=== PATIENT | male | born 1935 | race Caucasian/White ===

== ENCOUNTER 2017-03-28 12:16 | Emergency (ER) | payer MEDICARE ==
[2017-03-28] MEDS ORDERED: Ondansetron 4 MG/2 ML SDV IVPUSH ONE (12:29)
[2017-03-28] MEDS ORDERED: methylPREDNISolone Sodium Succinate 125 MG/2 ML SDV IVPUSH ONE (12:29)
[2017-03-28] MEDS ORDERED: Sodium Chloride 0.9% 1,000 ML IV SCH (12:30)
--- NOTE | 2017-03-28 12:40 | EDM.PDOC ---
ED HPI GENERAL MEDICAL PROBLEM - General Chief Complaint: Cardiovascular Problem Stated Complaint: [facility] Time Seen by Provider: 03/28/17 12:19 Source of Information: Reports: Patient History Limitations: Reports: No Limitations - History of Present Illness INITIAL COMMENTS - FREE TEXT/NARRATIVE: 81-year-old male presents via [facility] for evaluation treatment of dizziness, nausea and vomiting. Patient reports that the dizziness started prior to arrival in the ER. CT is not doing anything particular, he was shopping with his . After the dizziness started, then he developed nausea and vomiting. He was given 4 mg Zofran en route by EMS. This is only given about 5 mins prior to arrival, no effect as of yet. He denies any headaches, chest pain, shortness of breath or syncope. Reports that the dizziness improves when he lays down and closes his eyes. Reports some abdominal discomforts which he attributes to the nausea. No pain. No recent cough or cold symptoms. Patient has a significant cardiac history including A. fib and " a rapid heartbeat ". He is previously had what sounds like an ablation. He is currently on eliquis. He is also diabetic. Patient's reports he do not have anything to eat today. Last blood sugar reports was in the 150s. Onset: Today, Sudden - Related Data Allergies Allergy/AdvReac Type Severity Reaction Status Date / Time No Known Allergies Allergy Verified 03/28/17 12:20 Home Meds: Home Meds Apixaban [Eliquis] 5 mg PO BID 03/28/17 [History] Carvedilol 6.25 mg PO BID 03/28/17 [History] Digoxin 125 mcg PO DAILY 03/28/17 [History] Furosemide [Lasix] 20 mg PO DAILY 03/28/17 [History] Lisinopril [Zestril] 10 mg PO DAILY 03/28/17 [History] Meclizine [Antivert] 25 mg PO Q6H PRN #15 tab.chew 03/28/17 [Rx] Ondansetron [Zofran ODT] 4 mg PO Q6H PRN #15 tab.dis 03/28/17 [Rx] Pioglitazone [Actos] 30 mg PO DAILY 03/28/17 [History] sitaGLIPtin Phos/Metformin HCl [Janumet 50-1,000 MG] 50 - 1,000 mg PO DAILY [History] Past Medical History HEENT History: Reports: Cataract, Glaucoma Cardiovascular History: Reports: Arrhythmia, Hypertension, Other (See Below) Other Cardiovascular History: A fib Gastrointestinal History: Reports: Other (See Below) Other Gastrointestinal History: unspecified hernia Endocrine/Metabolic History: Reports: Diabetes, Type II - Past Surgical History HEENT Surgical History: Reports: LASIK GI Surgical History: Reports: Appendectomy, Cholecystectomy Social & Family History - Tobacco Use Smoking Status *Q: Never Smoker Second Hand Smoke Exposure: No - Caffeine Use Caffeine Use: Reports: Coffee - Recreational Drug Use Recreational Drug Use: No ED ROS GENERAL - Review of Systems Review Of Systems: See Below Constitutional: Reports: Diaphoresis, Decreased Appetite. Denies: Fever HEENT: Denies: Ear Pain Respiratory: Denies: Shortness of Breath, Cough Cardiovascular: Denies: Chest Pain Endocrine: Denies: Low Glucose GI/Abdominal: Reports: Nausea, Vomiting. Denies: Abdominal Pain (discomfort from nausea) Neurological: Reports: Dizziness. Denies: Headache, Syncope ED EXAM, GENERAL - Physical Exam Exam: See Below Exam Limited By: No Limitations General Appearance: Alert, WD/WN, Mild Distress, Obese Eye Exam: Bilateral Eye: Nystagmus (at rest and with EOM testing; horizontal), PERRL Ears: Normal External Exam, Normal Canal, Hearing Grossly Normal, Normal TMs Ear Exam: Bilateral Ear: Auricle Normal, Canal Normal, TM normal Nose: Normal Inspection Throat/Mouth: Normal Inspection, Normal Lips, Normal Voice, No Airway Compromise Respiratory/Chest: No Respiratory Distress, Lungs Clear, Normal Breath Sounds Cardiovascular: Normal Peripheral Pulses, Regular Rate, Rhythm, No Murmur GI/Abdominal: Soft, Non-Tender Extremities: Normal Inspection Neurological: Alert, Oriented, CN II-XII Intact, Normal Cognition, Other (fire regulator 5 /5 bilaterally; dorsiflexion 5/5 bilaterally, plantarflexion 5/5 bilaterally; no pronator drift, normal heel to hunt testing, difficuly with accuracy on finger to nose testing; no facial droop, no slurred speech, no limb weakness) Psychiatric: Normal Affect, Normal Mood Skin Exam: Warm, Normal Color, Diaphoretic EKG INTERPRETATION EKG Date: 03/28/17 Time: 12:35 Rhythm: A-Fib Rate (Beats/Min): 74 Ragland: LAD-Left Ragland Deviation P-Wave: Absent QRS: RBBB ST-T: Normal QT: Normal EKG Interpretation Comments: A.fib with a rate of 74 bpm. RBBB, LAFB. Reviewed by myself and Dr. Hartman. Course - Vital Signs Last Recorded V/S: Last Vital Signs Temp 36.3 C 03/28/17 12:59 Pulse 80 03/28/17 12:59 Resp 20 03/28/17 12:59 BP 155/100 H 03/28/17 12:59 Pulse Ox 97 03/28/17 12:59 - Orders/Labs/Meds Orders: Active Orders 24 hr Category Date Time Status Blood Glucose Check, Bedside [RC] ONETIME Care 03/28/17 12:28 Active Cardiac Monitoring [RC] . DIRECTED Care 03/28/17 12:27 Active EKG Documentation Completion [RC] ASDIRECTED Care 03/28/17 12:28 Active Sodium Chloride 0.9% [Normal Saline] 1,000 ml Med 03/28/17 12:30 Active IV ASDIRECTED EKG 12 Lead [EK] Stat Ther 03/28/17 12:27 Ordered Medication Orders Sodium Chloride (Normal Saline) 1,000 mls @ 75 mls/hr IV ASDIRECTED TOÑA Last Admin: 03/28/17 12:47 Dose: 75 mls/hr Labs: Laboratory Tests 03/28/17 03/28/17 03/28/17 Range/Units 12:25 12:35 12:40 WBC (4.23-9.07) K/mm3 RBC (4.63-6.08) M/mm3 Hgb (13.7-17.5) gm/L Hct (40.1-51.0) % MCV (79.0-92.2) fl MCH (25.7-32.2) pg MCHC (32.2-35.5) g/dl RDW Std Deviation (35.1-43.9) fL Plt Count (163-337) K/mm3 MPV (9.4-12.3) fl Neutrophils % (Manual) (40-60) % Band Neutrophils % (0-10) % Lymphocytes % (Manual) (20-40) % Atypical Lymphs % % Monocytes % (Manual) (2-10) % Eosinophils % (Manual) (0.8-7.0) % Basophils % (Manual) (0.2-1.2) Platelet Estimate RBC Morph Comment PT (8.0-13.0) SECONDS INR APTT (22-36) SECONDS Sodium 143 (136-145) mEq/L Potassium 4.4 (3.5-5.1) mEq/L Chloride 108 H (98-107) mEq/L Carbon Dioxide 27 (21-32) mEq/L Anion Gap 12.4 (5-15) BUN 23 H (7-18) mg/dL Creatinine 1.3 (0.7-1.3) mg/dL Est Cr Clr Drug Dosing 46.79 mL/min Estimated GFR (MDRD) 53 (>60) mL/min BUN/Creatinine Ratio 17.7 (14-18) Glucose 171 H (83-115) mg/dL POC Glucose 147 H (83-110) mg/dL Calcium 8.8 (8.5-10.1) mg/dL Total Bilirubin 1.3 H (0.2-1.0) mg/dL AST 18 (15-37) U/L ALT 18 (16-63) U/L Alkaline Phosphatase 42 L (46-116) U/L Troponin I 0.018 (0.00-0.056) ng/mL Total Protein 6.7 (6.4-8.2) g/dl Albumin 3.4 (3.4-5.0) g/dl Globulin 3.3 gm/dL Albumin/Globulin Ratio 1.0 (1-2) Urine Color Yellow (Yellow) Urine Appearance Clear (Clear) Urine pH 7.0 (5.0-8.0) Ur Specific [place] > or = 1.030 (1.005-1.030) Urine Protein 2+ H (Negative) Urine Glucose (UA) Negative (Negative) Urine Ketones Negative (Negative) Urine Occult Blood Negative (Negative) Urine Nitrite Negative (Negative) Urine Bilirubin Negative (Negative) Urine Urobilinogen 0.2 (0.2-1.0) Ur Leukocyte Esterase Negative (Negative) Urine RBC 0-5 (0-5) /hpf Urine WBC 0-5 (0-5) /hpf Ur Epithelial Cells 0-5 (0-5) /hpf Urine Bacteria Few (FEW) /hpf Urine Mucus Few (FEW) /hpf 03/28/17 03/28/17 Range/Units 12:40 12:40 WBC 6.80 (4.23-9.07) K/mm3 RBC 4.36 L (4.63-6.08) M/mm3 Hgb 12.7 L (13.7-17.5) gm/L Hct 38.5 L (40.1-51.0) % MCV 88.3 (79.0-92.2) fl MCH 29.1 (25.7-32.2) pg MCHC 33.0 (32.2-35.5) g/dl RDW Std Deviation 49.9 H (35.1-43.9) fL Plt Count 209 (163-337) K/mm3 MPV 9.6 (9.4-12.3) fl Neutrophils % (Manual) 69 H (40-60) % Band Neutrophils % 0 (0-10) % Lymphocytes % (Manual) 28 (20-40) % Atypical Lymphs % 0 % Monocytes % (Manual) 3 (2-10) % Eosinophils % (Manual) 0 L (0.8-7.0) % Basophils % (Manual) 0 L (0.2-1.2) Platelet Estimate Adequate RBC Morph Comment Normal PT 12.5 (8.0-13.0) SECONDS INR 1.14 APTT 27 (22-36) SECONDS Sodium (136-145) mEq/L Potassium (3.5-5.1) mEq/L Chloride (98-107) mEq/L Carbon Dioxide (21-32) mEq/L Anion Gap (5-15) BUN (7-18) mg/dL Creatinine (0.7-1.3) mg/dL Est Cr Clr Drug Dosing mL/min Estimated GFR (MDRD) (>60) mL/min BUN/Creatinine Ratio (14-18) Glucose (83-115) mg/dL POC Glucose (83-110) mg/dL Calcium (8.5-10.1) mg/dL Total Bilirubin (0.2-1.0) mg/dL AST (15-37) U/L ALT (16-63) U/L Alkaline Phosphatase (46-116) U/L Troponin I (0.00-0.056) ng/mL Total Protein (6.4-8.2) g/dl Albumin (3.4-5.0) g/dl Globulin gm/dL Albumin/Globulin Ratio (1-2) Urine Color (Yellow) Urine Appearance (Clear) Urine pH (5.0-8.0) Ur Specific [place] (1.005-1.030) Urine Protein (Negative) Urine Glucose (UA) (Negative) Urine Ketones (Negative) Urine Occult Blood (Negative) Urine Nitrite (Negative) Urine Bilirubin (Negative) Urine Urobilinogen (0.2-1.0) Ur Leukocyte Esterase (Negative) Urine RBC (0-5) /hpf Urine WBC (0-5) /hpf Ur Epithelial Cells (0-5) /hpf Urine Bacteria (FEW) /hpf Urine Mucus (FEW) /hpf Meds: Medications Generic Name Dose Route Start Last Admin Trade Name Freq PRN Reason Stop Dose Admin Sodium Chloride 1,000 mls @ 75 mls/hr 03/28/17 12:30 03/28/17 12:47 Normal Saline IV 75 mls/hr ASDIRECTED TOÑA Administration Discontinued Medications Generic Name Dose Route Start Last Admin Trade Name Freq PRN Reason Stop Dose Admin Diazepam 2 mg 03/28/17 12:29 03/28/17 12:45 Valium IVPUSH 03/28/17 12:30 2 mg ONETIME ONE Administration Meclizine HCl 25 mg 03/28/17 13:49 03/28/17 14:01 Antivert PO 03/28/17 13:50 25 mg ONETIME ONE Administration Methylprednisolone Sodium Succinate 125 mg 03/28/17 12:29 03/28/17 12:40 Solu-Medrol IVPUSH 03/28/17 12:30 125 mg ONETIME ONE Administration Metoclopramide HCl 10 mg 03/28/17 13:49 03/28/17 13:57 Reglan IVPUSH 03/28/17 13:50 10 mg ONETIME ONE Administration Ondansetron HCl 4 mg 03/28/17 12:29 03/28/17 12:43 Zofran IVPUSH 03/28/17 12:30 4 mg ONETIME ONE Administration - Radiology Interpretation Free Text/Narrative:: Head CT without contrast impression per Dr. Nice: Senescent change as described. No acute intracranial abnormality is identified on noncontrast head CT study. chest [address] Nice: Heart is enlarged. Elevated right hemidiaphragm is seen. Lungs are clear without acute infiltrates. Bony stretchers appear within normal limits for the patient's age. CT Results Date: 03/28/17 - Re-Assessments/Exams Free Text/Narrative Re-Assessment/Exam: 03/28/17 13:50 I reviewed the head CT, EKG and lab results with the patient. He reports that his nausea and dizziness is a little bit better but is still present. It is more the nausea. Bothering him now. I will have him try some meclizine and some Reglan. He is asking for some food will get him a little bit of Jell-O. We'll continue to monitor him here in the ER. We'll see how he feels and see if he feels up to going home versus staying in the hospital. He lives in [facility]. 03/28/17 15:56 I rechecked the patient. He feels greatly improved at this time and feels ready to go home. The nausea and the dizziness has significantly improved. His finger- to-nose testing is now normal and his heel to hunt testing is still normal. I will have nursing staff get him up and walk around the ER and see how he does. Plan will be to discharge home with meclizine and Zofran as needed. Follow-up next week. 03/28/17 16:11 Patient able to get up and amulate around the ER without problem. Feels significantly improved and feels ready to go home. Discharge instructions as documented. Departure - Departure Time of Disposition: 16:11 Disposition: Home, Self-Care 01 Condition: Good Clinical Impression: BPPV (benign paroxysmal positional vertigo) Prescriptions: Meclizine [Antivert] 25 mg PO Q6H PRN #15 tab.chew PRN Reason: Dizziness Ondansetron [Zofran ODT] 4 mg PO Q6H PRN #15 tab.dis PRN Reason: Nausea Instructions: Vertigo, [id number] Referrals: Francisco Johnson PA-C [Primary Care Provider] - Forms: ED Department Discharge Additional Instructions: Meclizine 1 tab every 6 hours as needed for dizziness. Zofran 1 tab sublingual every 6 hours as needed for nausea. Rest today. Make sure you're drinking plenty of fluids. Follow up with Francisco next week for recheck of your symptoms. Please return to the ER if your symptoms change or worsen. - My Orders Last 24 Hours: My Active Orders 03/28/17 12:27 Cardiac Monitoring [RC] . DIRECTED EKG 12 Lead [EK] Stat 03/28/17 12:28 Blood Glucose Check, Bedside [RC] ONETIME EKG Documentation Completion [RC] ASDIRECTED 03/28/17 12:30 Sodium Chloride 0.9% [Normal Saline] 1,000 ml IV ASDIRECTED - Assessment/Plan Last 24 Hours: My Active Orders 03/28/17 12:27 Cardiac Monitoring [RC] . DIRECTED EKG 12 Lead [EK] Stat 03/28/17 12:28 Blood Glucose Check, Bedside [RC] ONETIME EKG Documentation Completion [RC] ASDIRECTED 03/28/17 12:30 Sodium Chloride 0.9% [Normal Saline] 1,000 ml IV ASDIRECTED
--- NOTE | 2017-03-28 13:12 | CT ---
Head CT Technique: Multiple axial sections were obtained through the brain. Intravenous contrast not utilized. Comparison: No previous intracranial imaging. Findings: Ventricles along with basal cisterns and sulci over convexities are mildly prominent. Mild diminished density is noted within the periventricular and subcortical white matter compatible with small vessel ischemic demyelination change. No other abnormal parenchymal densities are seen. No evidence of intracranial hemorrhage. No midline shift or mass effect is seen. Visualized sinuses are clear. No acute calvarial abnormality is seen. Impression: 1. Senescent change as described above. No acute intracranial abnormality is identified on noncontrast head CT study. Diagnostic code #2
[2017-03-28] MEDS ORDERED: Metoclopramide 10 MG/2 ML SDV IVPUSH ONE (13:49)
[2017-03-28] MEDS ORDERED: Meclizine 12.5 MG Tab PO ONE (13:49)
--- NOTE | 2017-03-28 14:44 | CR ---
Chest: Portable view of the chest was obtained. Comparison: Previous chest x-ray of 08/08/16. Heart is enlarged. Elevated right hemidiaphragm is seen. Lungs are clear without acute infiltrates. Bony structures appear within normal limits for the patient's age. Impression: 1. Findings as noted above which are stable from prior chest x-ray. 2. Nothing acute is appreciated on portable chest x-ray. Diagnostic code #2
== END 2017-03-28 16:30 | disposition home or self-care (01) ==
LOC: JD.ED 12:16 → SUPCPDRO 12:16 → JD.ED 16:30
DX: H81.10 Benign paroxysmal vertigo, unspecified ear (principal); I10 Essential (primary) hypertension; E11.9 Type 2 diabetes mellitus without complications; Z79.899 Other long term (current) drug therapy; I48.91 Unspecified atrial fibrillation
CPT/HCPCS: 36415; 70450; 71010; 80053; 81001; 82962; 84484; 85025; 85610; 85730; 93005; 96361; 96374; 96375; 99285; A9270; J2405; J2765; J2930; J3360; J7040; 93010

== ENCOUNTER 2018-07-31 16:53 | Inpatient (IN) | payer MEDICARE ==
--- NOTE | 2018-07-31 17:22 | EDM.PDOC ---
ED HPI GENERAL MEDICAL PROBLEM - General Chief Complaint: Cardiovascular Problem Stated Complaint: [facility] Time Seen by Provider: 07/31/18 17:15 Source of Information: Reports: Patient History Limitations: Reports: No Limitations - History of Present Illness INITIAL COMMENTS - FREE TEXT/NARRATIVE: 83-year-old male presents to the ED request of his personal care provider Erica Levy and [facility]. Patient has been traveling to [facility] and staying for a lengthy period of time to receive radiation treatments to his prostate cancer. This is what brain direct radiation. He has received radiation now for 4 weeks and has about 3 weeks left to go. Apparently when he was seen there he had an ECG which showed a fast rhythm in the 140s to 150s and was asymptomatic and they decided to leave him alone. Patient presented to the clinic today and was identified to be in atrial flutter//fib with a rate of 1 45 /m. Has no chest pain states she's not short of breath does not feel dizzy lightheaded and has no orthopnea or PND. However he is on digoxin he reports that he did stop his carvedilol and his Lasix . Discontinue his carvedilol may be the reason for his elevated heart rate. Apparently he is still taking the digoxin. ECG done at the clinic showed a wide-complex tachycardia at 1 45/m. No old ECGs were available for comparison purposes. Patient was therefore transported by ground ambulance to [facility] from [place]. His O2 sats are 99 200 % on room air. He goes no history of coronary disease. Onset: Unknown/Unsure Duration: Week(s): Location: Reports: Other (elevated heart rate) Quality: Reports: Other (He is in no pain or discomfort and denies being short of breath or dizzy.) Severity: Mild Improves with: Reports: None Worsens with: Reports: None Context: Reports: Other (Presents with a wide-complex tachycardia at 1 45/m which apparently has been present for several weeks). Denies: Activity, Exercise, Lifting, Sick Contact, Trauma Associated Symptoms: Denies: Shortness of Breath ( with no other symptoms.) Treatments DATA INTEGRATION DEVELOPER: Reports: IV/IO - Related Data Allergies Allergy/AdvReac Type Severity Reaction Status Date / Time No Known Allergies Allergy Verified 07/31/18 17:02 Home Meds: Home Meds Apixaban [Eliquis] 5 mg PO BID 03/28/17 [History] Carvedilol 12.5 mg PO BID 03/28/17 [History] Furosemide [Lasix] 20 mg PO DAILY 03/28/17 [History] Lisinopril [Zestril] 10 mg PO DAILY 03/28/17 [History] sitaGLIPtin Phos/Metformin HCl [Janumet 50-1,000 MG] 50 - 1,000 mg PO BID [History] Timolol Maleate 1 drop EYEBOTH BID 07/31/18 [History] Past Medical History HEENT History: Reports: Cataract, Glaucoma Cardiovascular History: Reports: Arrhythmia, Hypertension, Other (See Below) Other Cardiovascular History: A fib Gastrointestinal History: Reports: Other (See Below) Other Gastrointestinal History: unspecified hernia Genitourinary History: Reports: Other (See Below) (Patient was recently diagnosed with prostate cancer and drinks currently receiving the heart beam radiation treatments in [facility]. He has completed 4 weeks of treatment and has 3 weeks to go. Initially did have some gross hematuria but this has since cleared. He is bowels are working normally with no diarrhea) Endocrine/Metabolic History: Reports: Diabetes, Type II - Past Surgical History HEENT Surgical History: Reports: LASIK GI Surgical History: Reports: Appendectomy, Cholecystectomy Social & Family History - Tobacco Use Smoking Status *Q: Never Smoker - Caffeine Use Caffeine Use: Reports: Coffee - Recreational Drug Use Recreational Drug Use: No - Living Situation & Occupation Living situation: Reports: Occupation: Retired ED ROS GENERAL - Review of Systems Review Of Systems: See Below Constitutional: Denies: Fever, Chills, Malaise, Weakness, Fatigue, Weight Loss HEENT: Reports: Glasses Respiratory: Denies: Shortness of Breath, Wheezing, Pleuritic Chest Pain, Cough , Sputum, Hemoptysis Cardiovascular: Reports: Blood Pressure Problem, Edema (Mild in his lower extremities but). Denies: Chest Pain, Claudication, Dyspnea on Exertion ( worse since stopping the Lasix), Lightheadedness, Orthopnea (Has hypertension), Palpitations Endocrine: Reports: Other (Is a type II diabetic). Denies: Fatigue, High Glucose GI/Abdominal: Denies: Constipation, Diarrhea, Decreased Appetite, Difficulty Swallowing, Distension, Flatus, Hematemesis, Hematochezia, Melena, Mucous in Stool : Reports: Frequency, Other (Currently being treated for prostate cancer heart beam radiation in [place], [place].) Musculoskeletal: Reports: Back Pain Skin: Reports: No Symptoms Neurological: Reports: No Symptoms Psychiatric: Reports: No Symptoms Hematologic/Lymphatic: Reports: No Symptoms Immunologic: Reports: No Symptoms ED EXAM, GENERAL - Physical Exam Exam: See Below Exam Limited By: No Limitations General Appearance: Alert, WD/WN, No Apparent Distress, Other (Initial blood pressure is reported to be 150 11/07/17 however on recheck it was 152/92.) Eye Exam: Bilateral Eye: Normal Inspection Throat/Mouth: Normal Inspection, Normal Lips, Normal Oropharynx Head: Atraumatic, Normocephalic Neck: Normal Inspection, Supple, Non-Tender, Full Range of Motion, Other (Does have elevated jugular venous pulsations to 2 cm below his angle of his mandible) . No: Lymphadenopathy (L), Lymphadenopathy (R) Respiratory/Chest: Lungs Clear, Respiratory Distress (Used to At rest 24/m. O2 sats are well maintained at 98% on room air.), Decreased Breath Sounds (Breath sounds are minimally decreased in both bases and ). No: Rales, Rhonchi (no adventitial sounds are identified), Wheezing Cardiovascular: No Gallop ( Monitor shows wide-complex tachycardia), JVD (22 cm below the angle of his mandible), Tachycardia (Tachycardia at 145 minute.), Other (Trace edema at the feet). No: Normal Peripheral Pulses Peripheral Pulses: 1+: Posterior Tibial (L), Posterior Tibial (R), Dorsalis Pedis (L), Dorsalis Pedis (R), 2+: Carotid (L), Carotid (R) GI/Abdominal: Normal Bowel Sounds, Soft, Non-Tender, No Organomegaly, No Abnormal Bruit, No Mass, Pelvis Stable (Male) Exam: No Hernia Back Exam: Normal Inspection, Full Range of Motion. No: CVA Tenderness (L), CVA Tenderness (R) Extremities: Normal Inspection, Normal Range of Motion, Non-Tender, Pedal Edema Neurological: Alert, Oriented (Trace pedal edema at the ankles.), CN II-XII Intact, Normal Cognition Psychiatric: Normal Affect, Normal Mood Skin Exam: Warm, Dry, Intact, Normal Color, No Rash EKG INTERPRETATION EKG Date: 02/22/19 Time: 19:21 Rhythm: A-Flutter (With rate anywhere from 80-1 50/m.) Rate (Beats/Min): 123 [place]: LAD-Left [place] Deviation (-53. Left anterior fascicular block pattern.) P-Wave: Absent QRS: Other (Wide-complex's is appreciated B1 B2 and V4. 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 T-wave inversion in 1 and aVL V6 also appreciated in V2 and V3.) QT: Prolonged (QTC is mildly prolonged) Course - Vital Signs Last Recorded V/S: Last Vital Signs Temp 36.6 C 07/31/18 17:03 Pulse 143 H 07/31/18 17:03 Resp 24 H 07/31/18 17:03 BP 156/118 H 07/31/18 17:03 Pulse Ox 98 07/31/18 17:03 - Orders/Labs/Meds Orders: Active Orders 24 hr Category Date Time Status EKG Documentation Completion [RC] STAT Care 07/31/18 17:16 Active Chest 1V Frontal [CR] Stat Exams 07/31/18 17:16 Taken Amiodarone In Dextrose,Iso-Osm [Nexterone in Dextrose Med 07/31/18 17:30 Active 360 MG/200 ML] 360 mg in 200 ml IV ASDIRECTED Medication Orders Amiodarone HCl/Dextrose (Nexterone In Dextrose 360 Mg/200 Ml) 360 mg in 200 mls @ 33.333 mls/hr IV ASDIRECTED TOÑA; Protocol Last Admin: 07/31/18 17:37 Dose: 33.333 mls/hr Labs: Laboratory Tests 07/31/18 07/31/18 07/31/18 Range/Units 17:28 17:28 17:28 WBC 6.40 (4.23-9.07) K/mm3 RBC 4.78 (4.63-6.08) M/mm3 Hgb 13.5 L (13.7-17.5) gm/L Hct 41.6 (40.1-51.0) % MCV 87.0 (79.0-92.2) fl MCH 28.2 (25.7-32.2) pg MCHC 32.5 (32.2-35.5) g/dl RDW Std Deviation 47.8 H (35.1-43.9) fL Plt Count 143 L (163-337) K/mm3 MPV 10.1 (9.4-12.3) fl Neutrophils % (Manual) 76 H (40-60) % Band Neutrophils % 2 (0-10) % Lymphocytes % (Manual) 17 L (20-40) % Atypical Lymphs % 0 % Monocytes % (Manual) 5 (2-10) % Eosinophils % (Manual) 0 L (0.8-7.0) % Basophils % (Manual) 0 L (0.2-1.2) Platelet Estimate Adequate RBC Morph Comment Normal PT 15.2 H (9.5-12.1) SECONDS INR 1.40 APTT 34 H (24-31) SECONDS Sodium 141 (136-145) mEq/L Potassium 4.3 (3.5-5.1) mEq/L Chloride 107 (98-107) mEq/L Carbon Dioxide 23 (21-32) mEq/L Anion Gap 15.3 H (5-15) BUN 23 H (7-18) mg/dL Creatinine 1.2 (0.7-1.3) mg/dL Est Cr Clr Drug Dosing 50.55 mL/min Estimated GFR (MDRD) 58 (>60) mL/min BUN/Creatinine Ratio 19.2 H (14-18) Glucose 150 H (83-115) mg/dL Calcium 8.6 (8.5-10.1) mg/dL Magnesium 1.5 L (1.8-2.4) mg/dl Total Bilirubin 1.4 H (0.2-1.0) mg/dL AST 37 (15-37) U/L ALT 40 (16-63) U/L Alkaline Phosphatase 43 L (46-116) U/L CK-MB (CK-2) 2.8 (0-3.6) ng/ml Troponin I 0.049 (0.00-0.056) ng/mL C-Reactive Protein 0.4 (<1.0) mg/dL NT-Pro-B Natriuret Pep (0-450) pg/mL Total Protein 6.5 (6.4-8.2) g/dl Albumin 3.2 L (3.4-5.0) g/dl Globulin 3.3 gm/dL Albumin/Globulin Ratio 1.0 (1-2) Digoxin < 0.2 L (0.9-2.0) ng/mL 07/31/18 Range/Units 17:28 WBC (4.23-9.07) K/mm3 RBC (4.63-6.08) M/mm3 Hgb (13.7-17.5) gm/L Hct (40.1-51.0) % MCV (79.0-92.2) fl MCH (25.7-32.2) pg MCHC (32.2-35.5) g/dl RDW Std Deviation (35.1-43.9) fL Plt Count (163-337) K/mm3 MPV (9.4-12.3) fl Neutrophils % (Manual) (40-60) % Band Neutrophils % (0-10) % Lymphocytes % (Manual) (20-40) % Atypical Lymphs % % Monocytes % (Manual) (2-10) % Eosinophils % (Manual) (0.8-7.0) % Basophils % (Manual) (0.2-1.2) Platelet Estimate RBC Morph Comment PT (9.5-12.1) SECONDS INR APTT (24-31) SECONDS Sodium (136-145) mEq/L Potassium (3.5-5.1) mEq/L Chloride (98-107) mEq/L Carbon Dioxide (21-32) mEq/L Anion Gap (5-15) BUN (7-18) mg/dL Creatinine (0.7-1.3) mg/dL Est Cr Clr Drug Dosing mL/min Estimated GFR (MDRD) (>60) mL/min BUN/Creatinine Ratio (14-18) Glucose (83-115) mg/dL Calcium (8.5-10.1) mg/dL Magnesium (1.8-2.4) mg/dl Total Bilirubin (0.2-1.0) mg/dL AST (15-37) U/L ALT (16-63) U/L Alkaline Phosphatase (46-116) U/L CK-MB (CK-2) (0-3.6) ng/ml Troponin I (0.00-0.056) ng/mL C-Reactive Protein (<1.0) mg/dL NT-Pro-B Natriuret Pep 5730 H (0-450) pg/mL Total Protein (6.4-8.2) g/dl Albumin (3.4-5.0) g/dl Globulin gm/dL Albumin/Globulin Ratio (1-2) Digoxin (0.9-2.0) ng/mL Meds: Medications Generic Name Dose Route Start Last Admin Trade Name Freq PRN Reason Stop Dose Admin Amiodarone HCl/Dextrose 360 mg in 200 mls @ 33.333 mls/hr 07/31/18 17:30 17:37 Nexterone In Dextrose 360 Mg/200 Ml IV 33.333 mls/hr ASDIRECTED TOÑA Administration Protocol Discontinued Medications Generic Name Dose Route Start Last Admin Trade Name Freq PRN Reason Stop Dose Admin Amiodarone HCl/Dextrose 100 mls @ 600 mls/hr 07/31/18 17:18 07/31/18 17:25 Nexterone In Dextrose 150 Mg/100 Ml IV 07/31/18 17:27 600 mls/hr .BOLUS ONE Administration Protocol - Radiology Interpretation Free Text/Narrative:: 83-year-old male presents the ED due to persistent tachycardia for at least 2 weeks or probably longer. Care provider was able to establish that he was identified to be having a panic tachycardia over 2 weeks ago when he was seen by the wind operations manager in [facility]. She had no ECGs for comparison purposes. The ECG section she said me suggested a wide-complex tachycardia. My ECG does suggest a wide-complex tachycardia due to left anterior fascicular block and likely right bundle branch block pattern. The rate is atrophic/atrial flutter. She is no longer on the carvedilol will treat him with amiodarone starting with the 150 mg over 10 minutes and then starting him on a drip of 60 mg an hour. Labs to be done to include serum digoxin level BNP. One view chest x-ray to be done - Re-Assessments/Exams Free Text/Narrative Re-Assessment/Exam: 07/31/18 17:46 Portable chest x-ray reveals moderate cardiomegaly with mild diffuse vascular congestion. No pleural effusions are evident. Slight tortuosity of the thoracic aorta appreciated his rate is already dropped to 71/ m after the initial amiodarone 150 mg over 10 minutes. Sats are maintained at 96 % on room air 07/31/18 18:47 Labs reveal a normal white count at 6.40 with 76% neutrophils and 2% band cells reported. Hemoglobin is 13.5 with hematocrit of 41.6. Platelet counts 143,000. PT is 15.2 with an INR 1.40. PTT is 34. Sodium 141 with potassium of 4.3. Chloride is 107 with bicarbonate 23. And a gap is 15.3 with a BUN of 23. Creatinine 1.2. BUN/creatinine ratio is slightly elevated at 19.2. Glucose 150. Calcium was 8.6 with magnesium slightly low at 1.5. Total bilirubin is 1.4 AST is 37 with an ALT of 40. Alk phosphatase is low at 43. CK- MB fraction is 2.8. Troponin I is normal at 0.049. C-reactive protein is 0.4. BNP is 5730. Total bilirubin is 6.5. Digoxin is less than 0.2 suggesting he is not taking it either. His discussed with Dr. Nino who is telephone instrument supervisor for hospitalist at this time. He will accept the patient in care to the intensive care unit as he is on amiodarone infusion.. 07/31/18 19:13 continues to complain of a pinching sensation in his right supraclavicular fossa area. Us the third time he has been complaining about it. Will give him 0.25 mg of Dilaudid for pain relief at this time. He will be given Lasix 40 mg IV. His BNP is 5730. Departure - Departure Time of Disposition: 18:48 Disposition: Admitted As Inpatient 67 Condition: Fair Clinical Impression: Chronic atrial fibrillation with RVR Hypertensive heart disease Qualifiers: Heart failure presence: with heart failure Heart failure type: combined systolic and diastolic Heart failure chronicity: acute on chronic Qualified Code (s): I11.0 - Hypertensive heart disease with heart failure; I50.43 - Acute on chronic combined systolic (congestive) and diastolic (congestive) heart failure Congestive heart failure Qualifiers: Heart failure type: unspecified Heart failure chronicity: acute on chronic Qualified Code(s): I50.9 - Heart failure, unspecified Forms: ED Department Discharge - My Orders Last 24 Hours: My Active Orders 07/31/18 17:16 EKG Documentation Completion [RC] STAT Chest 1V Frontal [CR] Stat 07/31/18 17:30 Amiodarone In Dextrose,Iso-Osm [Nexterone in Dextrose 360 MG/200 ML] 360 mg in 200 ml IV ASDIRECTED - Assessment/Plan Last 24 Hours: My Active Orders 07/31/18 17:16 EKG Documentation Completion [RC] STAT Chest 1V Frontal [CR] Stat 07/31/18 17:30 Amiodarone In Dextrose,Iso-Osm [Nexterone in Dextrose 360 MG/200 ML] 360 mg in 200 ml IV ASDIRECTED
[2018-07-31] MEDS ORDERED: Furosemide 40 MG/4 ML VIAL IVPUSH ONE (19:01)
[2018-07-31] MEDS ORDERED: HYDROmorphone 1 MG/ML Syringe IVPUSH ONE (19:02)
[2018-07-31] MEDS ORDERED: LORazepam 2 MG/ML SDV IV PRN (19:21)
[2018-07-31] MEDS ORDERED: Docusate Sodium 100 MG Cap PO PRN (19:21)
[2018-07-31] MEDS ORDERED: Albuterol/Ipratropium 3.0-0.5 MG/3 ML Neb Soln NEB PRN (19:21)
[2018-07-31] MEDS ORDERED: HYDROmorphone 1 MG/ML Syringe IVPUSH PRN (19:21)
[2018-07-31] MEDS ORDERED: Metoprolol Tartrate 5 MG/5 ML SDV IVPUSH PRN (19:21)
[2018-07-31] MEDS ORDERED: hydrALAZINE 20 MG/ML SDV IVPUSH PRN (19:21)
[2018-07-31] MEDS ORDERED: Ondansetron 4 MG/2 ML SDV IV PRN (19:21)
[2018-07-31] MEDS ORDERED: Bisacodyl 5 MG Tab PO PRN (19:21)
[2018-07-31] MEDS ORDERED: Promethazine 6.25 MG in Sodium Chloride 0.9% 50 ML IV PRN (19:21)
[2018-07-31] MEDS ORDERED: Acetaminophen 325 MG Tab PO PRN (19:21)
--- NOTE | 2018-07-31 19:37 | PCM.HP ---
H&P History of Present Illness - General Date of Service: 07/31/18 Source of Information: Patient, Provider History Limitations: Reports: No Limitations - History of Present Illness Initial Comments - Free Text/Narative: This is an 83 yo male with past medical h/o Afib on Eliquis, HTN, CHF, DM2, Appendectomy, Cholecystectomy, Cataract, Glaucoma, Prostate CA who was sent to the ED from his PCP in [place] for Afib w/ RVR. Pt was at clinic today and was identified to be in atrial flutter/Afib with wide-complex tachycardia at 145bpm. While getting radiation treatment for Prostate CA in [place] over the past 4 weeks, he had EKG w/ HR 140s-150s but was asymptomatic so no treatment was given. He is on Digoxin, but stopped his Carvedilol and Lasix (he is unsure as to why these were stopped). Pt c/o pinching sensation in his right supraclavicular fossa area. He denies any dizziness/lightheadedness, CP, SOB, N/ V/D, or other complaints. His initial workup in the ED shows a CBC remarkable for Hgb 13.5, RDW 47.8, Plt 143, Neut 76%, Lymph 17%. Coagulation studies show PT 15.2, INR 1.4, APTT 34. His chemistry is remarkable for AGap 15.3, BUN 23, GFR 58, Glu 150, Mg 1.5, Bili 1.4, Alk Phos 43, BNP 5730, Albumin 3.2. Digoxin <0.2. EKG per ED read suggests wide-complex tachycardia d/t L anterior fascicular block and likely RBBB, mildly prolonged QT interval. UA not impressive for UTI. CXR per ED read shows mod cardiomegaly w/ mild diffuse vascular congestion; pending formal read. He is subsequently admitted to the ICU. He is a Full Code. PCP is Erica Levy PA-C at [facility]. - Related Data Allergies/Adverse Reactions: Allergies Allergy/AdvReac Type Severity Reaction Status Date / Time No Known Allergies Allergy Verified 07/31/18 17:02 Home Medications: Home Meds Apixaban [Eliquis] 5 mg PO BID 03/28/17 [History] Carvedilol 12.5 mg PO BID 03/28/17 [History] Furosemide [Lasix] 20 mg PO DAILY 03/28/17 [History] Lisinopril [Zestril] 10 mg PO DAILY 03/28/17 [History] sitaGLIPtin Phos/Metformin HCl [Janumet 50-1,000 MG] 50 - 1,000 mg PO BID [History] Timolol Maleate 1 drop EYEBOTH BID 07/31/18 [History] Past Medical History HEENT History: Reports: Cataract, Glaucoma Cardiovascular History: Reports: Arrhythmia, Hypertension, Other (See Below) Other Cardiovascular History: A fib Gastrointestinal History: Reports: Other (See Below) Other Gastrointestinal History: unspecified hernia Genitourinary History: Reports: Other (See Below) (Patient was recently diagnosed with prostate cancer and drinks currently receiving the heart beam radiation treatments in [facility]. He has completed 4 weeks of treatment and has 3 weeks to go. Initially did have some gross hematuria but this has since cleared. He is bowels are working normally with no diarrhea) Endocrine/Metabolic History: Reports: Diabetes, Type II - Past Surgical History HEENT Surgical History: Reports: LASIK GI Surgical History: Reports: Appendectomy, Cholecystectomy Social & Family History - Tobacco Use Smoking Status *Q: Never Smoker - Caffeine Use Caffeine Use: Reports: Coffee - Recreational Drug Use Recreational Drug Use: No - Living Situation & Occupation Living situation: Reports: Occupation: Retired H&P Review of Systems - Review of Systems: Review Of Systems: See Below General: Reports: No Symptoms. Denies: Fever, Chills, Malaise, Weakness, Fatigue HEENT: Reports: Glasses. Denies: Headaches, Visual Changes Pulmonary: Reports: No Symptoms. Denies: Shortness of Breath, Wheezing, Cough Cardiovascular: Reports: Edema, Blood Pressure Problem. Denies: Chest Pain, Palpitations, Dyspnea on Exertion, Orthopnea, Lightheadedness Gastrointestinal: Reports: No Symptoms. Denies: Abdominal Pain, Diarrhea, Nausea, Vomiting Genitourinary: Reports: Frequency, Other (currently being treated for Prostate CA) Musculoskeletal: Reports: Back Pain Skin: Reports: No Symptoms Psychiatric: Reports: No Symptoms Neurological: Reports: No Symptoms Hematologic/Lymphatic: Reports: No Symptoms Immunologic: Reports: No Symptoms Exam - Exam Exam: See Below - Vital Signs Vital Signs: Last Vital Signs Temp 97.8 F 07/31/18 17:03 Pulse 143 H 02/22/19 17:03 Resp 24 H 07/31/18 17:03 BP 156/118 H 07/31/18 17:03 Pulse Ox 98 07/31/18 17:03 Weight: 220 lb - Exam Quality Assessment: DVT Prophylaxis General: Alert, Oriented, Cooperative HEENT: Conjunctiva Clear, EACs Clear, EOMI, Hearing Intact, Mucosa Moist & [place] , Nares Patent, Normal Nasal Septum, Posterior Pharynx Clear, Glasses, PERRLA Neck: Supple, Trachea Midline, JVD Lungs: Clear to Auscultation, Decreased Breath Sounds Cardiovascular: Irregular Rhythm, Tachycardia. No: Regular Rate (irregular) GI/Abdominal Exam: Normal Bowel Sounds, Soft, Non-Tender, No Organomegaly, No Distention, No Abnormal Bruit, No Mass, Pelvis Stable (Male) Exam: Deferred Rectal (Males) Exam: Deferred Back Exam: Normal Inspection Extremities: Normal Inspection, Normal Range of Motion, Non-Tender, Normal Capillary Refill, Pedal Edema (1+ bilaterally) Peripheral Pulses: 1+: Posterior Tibial (L), Posterior Tibial (R), Dorsalis Pedis (L), Dorsalis Pedis (R) Skin: Warm, Dry, Intact Neurological: Cranial Nerves Intact (grossly) Neuro Extensive - Mental Status: Alert, Oriented x3, Normal Mood/Affect, Normal Cognition Psychiatric: Alert, Normal Affect, Normal Mood - Patient Data Lab Results Last 24 hrs: Laboratory Results - last 24 hr 07/31/18 07/31/18 07/31/18 Range/Units 17:28 17:28 17:28 WBC 6.40 (4.23-9.07) K/mm3 RBC 4.78 (4.63-6.08) M/mm3 Hgb 13.5 L (13.7-17.5) gm/L Hct 41.6 (40.1-51.0) % MCV 87.0 (79.0-92.2) fl MCH 28.2 (25.7-32.2) pg MCHC 32.5 (32.2-35.5) g/dl RDW Std Deviation 47.8 H (35.1-43.9) fL Plt Count 143 L (163-337) K/mm3 MPV 10.1 (9.4-12.3) fl Neutrophils % (Manual) 76 H (40-60) % Band Neutrophils % 2 (0-10) % Lymphocytes % (Manual) 17 L (20-40) % Atypical Lymphs % 0 % Monocytes % (Manual) 5 (2-10) % Eosinophils % (Manual) 0 L (0.8-7.0) % Basophils % (Manual) 0 L (0.2-1.2) Platelet Estimate Adequate RBC Morph Comment Normal PT 15.2 H (9.5-12.1) SECONDS INR 1.40 APTT 34 H (24-31) SECONDS Sodium 141 (136-145) mEq/L Potassium 4.3 (3.5-5.1) mEq/L Chloride 107 (98-107) mEq/L Carbon Dioxide 23 (21-32) mEq/L Anion Gap 15.3 H (5-15) BUN 23 H (7-18) mg/dL Creatinine 1.2 (0.7-1.3) mg/dL Est Cr Clr Drug Dosing 50.55 mL/min Estimated GFR (MDRD) 58 (>60) mL/min BUN/Creatinine Ratio 19.2 H (14-18) Glucose 150 H (83-115) mg/dL Calcium 8.6 (8.5-10.1) mg/dL Magnesium 1.5 L (1.8-2.4) mg/dl Total Bilirubin 1.4 H (0.2-1.0) mg/dL AST 37 (15-37) U/L ALT 40 (16-63) U/L Alkaline Phosphatase 43 L (46-116) U/L CK-MB (CK-2) 2.8 (0-3.6) ng/ml Troponin I 0.049 (0.00-0.056) ng/mL C-Reactive Protein 0.4 (<1.0) mg/dL NT-Pro-B Natriuret Pep (0-450) pg/mL Total Protein 6.5 (6.4-8.2) g/dl Albumin 3.2 L (3.4-5.0) g/dl Globulin 3.3 gm/dL Albumin/Globulin Ratio 1.0 (1-2) Urine Color (Yellow) Urine Appearance (Clear) Urine pH (5.0-8.0) Ur Specific [place] (1.005-1.030) Urine Protein (Negative) Urine Glucose (UA) (Negative) Urine Ketones (Negative) Urine Occult Blood (Negative) Urine Nitrite (Negative) Urine Bilirubin (Negative) Urine Urobilinogen (0.2-1.0) Ur Leukocyte Esterase (Negative) Urine RBC (0-5) /hpf Urine WBC (0-5) /hpf Ur Epithelial Cells (0-5) /hpf Urine Bacteria (FEW) /hpf Hyaline Casts (0-5) /lpf Urine Mucus (FEW) /hpf Digoxin < 0.2 L (0.9-2.0) ng/mL 07/31/18 07/31/18 Range/Units 17:28 18:49 WBC (4.23-9.07) K/mm3 RBC (4.63-6.08) M/mm3 Hgb (13.7-17.5) gm/L Hct (40.1-51.0) % MCV (79.0-92.2) fl MCH (25.7-32.2) pg MCHC (32.2-35.5) g/dl RDW Std Deviation (35.1-43.9) fL Plt Count (163-337) K/mm3 MPV (9.4-12.3) fl Neutrophils % (Manual) (40-60) % Band Neutrophils % (0-10) % Lymphocytes % (Manual) (20-40) % Atypical Lymphs % % Monocytes % (Manual) (2-10) % Eosinophils % (Manual) (0.8-7.0) % Basophils % (Manual) (0.2-1.2) Platelet Estimate RBC Morph Comment PT (9.5-12.1) SECONDS INR APTT (24-31) SECONDS Sodium (136-145) mEq/L Potassium (3.5-5.1) mEq/L Chloride (98-107) mEq/L Carbon Dioxide (21-32) mEq/L Anion Gap (5-15) BUN (7-18) mg/dL Creatinine (0.7-1.3) mg/dL Est Cr Clr Drug Dosing mL/min Estimated GFR (MDRD) (>60) mL/min BUN/Creatinine Ratio (14-18) Glucose (83-115) mg/dL Calcium (8.5-10.1) mg/dL Magnesium (1.8-2.4) mg/dl Total Bilirubin (0.2-1.0) mg/dL AST (15-37) U/L ALT (16-63) U/L Alkaline Phosphatase (46-116) U/L CK-MB (CK-2) (0-3.6) ng/ml Troponin I (0.00-0.056) ng/mL C-Reactive Protein (<1.0) mg/dL NT-Pro-B Natriuret Pep 5730 H (0-450) pg/mL Total Protein (6.4-8.2) g/dl Albumin (3.4-5.0) g/dl Globulin gm/dL Albumin/Globulin Ratio (1-2) Urine Color Yellow (Yellow) Urine Appearance Clear (Clear) Urine pH 6.0 (5.0-8.0) Ur Specific [place] > or = 1.030 (1.005-1.030) Urine Protein 3+ H (Negative) Urine Glucose (UA) Negative (Negative) Urine Ketones Negative (Negative) Urine Occult Blood 1+ H (Negative) Urine Nitrite Negative (Negative) Urine Bilirubin Negative (Negative) Urine Urobilinogen 0.2 (0.2-1.0) Ur Leukocyte Esterase Trace H (Negative) Urine RBC 10-20 H (0-5) /hpf Urine WBC 10-20 H (0-5) /hpf Ur Epithelial Cells 0-5 (0-5) /hpf Urine Bacteria Few (FEW) /hpf Hyaline Casts 5-10 H (0-5) /lpf Urine Mucus Moderate H (FEW) /hpf Digoxin (0.9-2.0) ng/mL Result Diagrams: 07/31/18 17:28 07/31/18 17:28 - Problem List (1) Chronic atrial fibrillation with RVR SNOMED Code(s): 588662037, [id number] ICD Code: I48.2 - CHRONIC ATRIAL FIBRILLATION Status: Acute Priority: High Current Visit: Yes (2) Congestive heart failure SNOMED Code(s): 00000316 ICD Code: I50.9 - HEART FAILURE, UNSPECIFIED Status: Acute Priority: High Current Visit: Yes Qualifiers: Heart failure type: unspecified Heart failure chronicity: acute on chronic Qualified Code(s): I50.9 - Heart failure, unspecified Problem List Initiated/Reviewed/Updated: Yes Orders Last 24hrs: Active Orders 24 hr Category Date Time Status Cardiac Monitoring [RC] CONTINUOUS Care 07/31/18 19:22 Ordered EKG Documentation Completion [RC] ROUTINE Care 07/31/18 19:00 Active EKG Documentation Completion [RC] STAT Care 07/31/18 17:16 Active Height and Weight [RC] DAILY Care 07/31/18 19:21 Active Intake and Output [RC] QSHIFT Care 07/31/18 19:22 Ordered Oxygen Therapy [RC] PRN Care 07/31/18 19:21 Ordered Pulse Oximetry [RC] PRN Care 07/31/18 19:22 Ordered RT Aerosol Therapy [RC] ASDIRECTED Care 07/31/18 19:23 Ordered Up With Assistance [RC] ASDIRECTED Care 07/31/18 19:21 Ordered Up ad [place] [RC] ASDIRECTED Care 07/31/18 19:21 Ordered VTE/DVT Education [RC] PER UNIT ROUTINE Care 07/31/18 19:21 Ordered Vital Signs [RC] Q4H Care 07/31/18 19:21 Active Consistent Carbohydrate Diet [DIET] Diet 07/31/18 Dinner Active Heart Healthy Diet [DIET] Diet 07/31/18 Dinner Active Chest 1V Frontal [CR] Stat Exams 07/31/18 17:16 Taken BASIC METABOLIC PANEL,BMP [CHEM] AM Lab 08/01/18 05:11 Ordered BASIC METABOLIC PANEL,BMP [CHEM] AM Lab 08/02/18 05:11 Ordered BASIC METABOLIC PANEL,BMP [CHEM] AM Lab 08/03/18 05:11 Ordered CBC WITH AUTO DIFF [HEME] AM Lab 08/01/18 05:11 Ordered CBC WITH AUTO DIFF [HEME] AM Lab 08/02/18 05:11 Ordered CBC WITH AUTO DIFF [HEME] AM Lab 08/03/18 05:11 Ordered MAGNESIUM [CHEM] AM Lab 08/01/18 05:11 Ordered MAGNESIUM [CHEM] AM Lab 08/02/18 05:11 Ordered MAGNESIUM [CHEM] AM Lab 08/03/18 05:11 Ordered Acetaminophen [Tylenol] Med 07/31/18 19:21 Ordered 650 mg PO Q4H PRN Acetaminophen/HYDROcodone [[place] 325-5 MG] Med 07/31/18 19:21 Ordered 1 tab PO Q4H PRN Albuterol/Ipratropium [DuoNeb 3.0-0.5 MG/3 ML] Med 07/31/18 19:21 Ordered 3 ml NEB Q4H PRN Amiodarone In Dextrose,Iso-Osm [Nexterone in Dextrose Med 07/31/18 17:30 Active 360 MG/200 ML] 360 mg in 200 ml IV ASDIRECTED Apixaban [Eliquis] Med 07/31/18 21:00 Ordered 5 mg PO BID Bisacodyl [Dulcolax] Med 07/31/18 19:21 Ordered 5 mg PO DAILY PRN Carvedilol [Coreg] Med 07/31/18 21:00 Ordered 12.5 mg PO BID Docusate Sodium [Colace] Med 07/31/18 19:21 Ordered 100 mg PO BID PRN Docusate Sodium/Sennosides [Senna Plus] Med 07/31/18 19:21 Ordered 1 tab PO BID PRN Furosemide [Lasix] Med 08/01/18 09:00 Ordered 20 mg PO DAILY HYDROmorphone [Dilaudid] Med 07/31/18 19:21 Ordered 0.25 mg IVPUSH Q2H PRN LORazepam [Ativan] Med 07/31/18 19:21 Ordered 0.25 mg IV Q6H PRN Lisinopril [Prinivil] Med 08/01/18 09:00 Ordered 10 mg PO DAILY Metoprolol Tartrate [Lopressor] Med 07/31/18 19:21 Ordered 5 mg IVPUSH Q4H PRN Ondansetron [Zofran] Med 07/31/18 19:21 Ordered 4 mg IV Q6H PRN Pharmacy to Dose - Magnesium R [Pharmacy to Dose - Med 07/31/18 19:30 Ordered Magnesium Replacement] 1 dose .XX ASDIRECTED Pharmacy to Dose - Potassium R [Pharmacy to Dose - Med 07/31/18 19:30 Ordered Potassium Replacement] 1 dose .XX ASDIRECTED Promethazine [Phenergan] 6.25 mg Med 07/31/18 19:21 Ordered Sodium Chloride 0.9% [Normal Saline] 50 ml IV Q6H Timolol Maleate [Timoptic 0.25% Ophth Soln] Med 07/31/18 21:00 Ordered 1 drop EYEBOTH BID hydrALAZINE [Apresoline] Med 07/31/18 19:21 Ordered 20 mg IVPUSH Q4H PRN sitaGLIPtin Phos/Metformin HCl [Janumet 50-1,000 MG] Med 07/31/18 21:00 Ordered 50 - 1,000 mg PO BID Medication Orders Amiodarone HCl/Dextrose (Nexterone In Dextrose 360 Mg/200 Ml) 360 mg in 200 mls @ 33.333 mls/hr IV ASDIRECTED TOÑA; Protocol Last Admin: 07/31/18 17:37 Dose: 33.333 mls/hr Assessment/Plan Comment:: Assessment/Plan: AFib w/ RVR * Acute on Chronic * Risk factor: Stopped taking Carvedilol--> Restart Carvedilol * Pt denies dizziness, CP, SOB * Persistent tachycardia x 2+ weeks: * During radiation treatment in [place] over the past 4 weeks, had EKG w/ HR 140s- 150s but was asymptomatic so no treatment was given * Pt was at clinic today and identified to be in Aflutter/Afib with wide- complex tachycardia at 145bpm; was sent to ED * He is on Digoxin * EKG in ED suggests wide-complex tachycardia d/t L anterior fascicular block and likely RBBB; mildly prolonged QT interval * CXR per ED read: Mod cardiomegaly w/ mild diffuse vascular congestion; pending formal read * Amiodarone started in ED--> continue * Thyroid panel pending * F/U with cardiology CHF * Acute on Chronic * Risk Factors: Afib, HTN, stopped his Lasix and Carvedilol--> Restart Carvedilol * BNP 5730, Pedal edema * ECHO pending; no prior studies to compare to * Lasix given in ED * Bumex BID Chronic: Afib on Eliquis, Digoxin, previously on Carvedilol HTN on Lisinopril CHF previously on Carvedilol, Lasix DM2 on Metformin * A1C pending * QID Glucose checks, ISS Appendectomy Cholecystectomy Cataract, Glaucoma Prostate CA --> radiation treatment in [place], [place] (4 weeks completed, 3 weeks to go) Plan: Admit to ICU Routine AM Labs Orders as above Consistent Carb/Heart Healthy Diet DVT/GI prophylaxis CM/SW PT/OT Code Status: Full Code; PCP: Erica Levy PA-C at [facility]
[2018-07-31] MEDS ORDERED: Magnesium Oxide 400 MG Tab PO ONE (20:00)
--- NOTE | 2018-07-31 20:47 | PCM.SN ---
- Free Text/Narrative Note: Patient seems to have converted to sinus rhythm with a heart rate of 67. He has been ambulating with heart rates in the 80s. He received a total of est 300 mg IV Amiodarone (150 mg bolus and 1/5 of 350 drip). Hence, we will start him on oral regimen with 300 mg po x1 tonight at 2100. Then 300 mg po BID (or 600 mg po daily) starting in AM in loading phase for at least 1-3 weeks until adequate arrhythmia control is achieved then reduce to maintenance at 400 mg po daily or 200 mg po BID. He will have 2D echo in AM and he needs cardiology follow up after discharge.
[2018-07-31] MEDS: Alogliptin 12.5 MG TABLET PO SCH (20:52)
[2018-07-31] MEDS: Carvedilol 12.5 MG Tab PO SCH (20:54)
[2018-07-31] MEDS: Apixaban 5 MG Tab PO SCH (20:55)
[2018-07-31] MEDS: metFORMIN 500 MG Tab PO SCH (20:58)
[2018-07-31] MEDS ORDERED: [UNRECOGNIZED DRUG - OTHER] PO SCH (21:00)
[2018-07-31] MEDS ORDERED: Amiodarone 200 MG Tab PO ONE (21:00)
[2018-07-31] MEDS ORDERED: SITAGLIPTIN PHOS PO SCH (21:00)
[2018-07-31] MEDS ORDERED: METFORMIN HCL PO SCH (21:00)
[2018-07-31] MEDS: Timolol Maleate 0.25% Ophth Soln 5 ML Bottle EYEBOTH SCH (21:06)
[2018-07-31] MEDS: Insulin Lispro 100 UNIT/ML 10 ML VIAL SUBCUT SCH (22:17)
[2018-08-01] MEDS: Acetaminophen/HYDROcodone 325-5 MG Tab PO PRN ×3 (01:01→20:19)
[2018-08-01] MEDS: Bumetanide 1 MG/4 ML MDV IVPUSH SCH ×2 (06:10→14:03)
--- NOTE | 2018-08-01 07:15 | PCM.PN ---
- General Info Date of Service: 08/01/18 Admission Dx/Problem (Free Text): Afib with RVR Subjective Update: Follow Up Functional Status: Reports: Pain Controlled, Tolerating Diet, Ambulating, Urinating, New Symptoms - Review of Systems General: Reports: Fatigue. Denies: Fever, Chills Pulmonary: Denies: Shortness of Breath Cardiovascular: Denies: Chest Pain, Palpitations, Dyspnea on Exertion, Orthopnea , Edema, Lightheadedness Gastrointestinal: Denies: Abdominal Pain, Difficulty Swallowing, Nausea, Vomiting Genitourinary: Reports: No Symptoms Musculoskeletal: Reports: No Symptoms Skin: Denies: Cyanosis, Diaphoresis, Rash Neurological: Denies: Confusion, Difficulty Walking, Weakness, Gait Disturbance Psychiatric: Denies: Depression, Anxiety, Agitation, Hallucinations Systems Review Comment:: No overnight issues. He slept good last using his CPAP but woke up a little fatigue and dizzy. His heart rate on the monitor runs from low hundreds (104) to as high as 125 at rest. His glucose has improved with A1C of 8.10. His proBNP is 5973 this morning. - Patient Data Vitals - Most Recent: Last Vital Signs Temp 35.8 C 08/01/18 04:00 Pulse 114 H 08/01/18 04:00 Resp 20 08/01/18 04:00 BP 125/97 H 08/01/18 04:00 Pulse Ox 97 08/01/18 04:00 Weight - Most Recent: 122.924 kg I&O - Last 24 Hours: Intake & Output 07/31/18 08/01/18 08/01/18 22:59 06:59 14:59 Intake Total 442 Output Total 100 600 Balance -100 -158 Lab Results Last 24 Hours: Laboratory Results - last 24 hr 07/31/18 07/31/18 07/31/18 Range/Units 17:28 17:28 17:28 WBC 6.40 (4.23-9.07) K/mm3 RBC 4.78 (4.63-6.08) M/mm3 Hgb 13.5 L (13.7-17.5) gm/L Hct 41.6 (40.1-51.0) % MCV 87.0 (79.0-92.2) fl MCH 28.2 (25.7-32.2) pg MCHC 32.5 (32.2-35.5) g/dl RDW Std Deviation 47.8 H (35.1-43.9) fL Plt Count 143 L (163-337) K/mm3 MPV 10.1 (9.4-12.3) fl Neut % (Auto) (34.0-67.9) % Lymph % (Auto) (21.8-53.1) % Wayne % (Auto) (5.3-12.2) % Eos % (Auto) (0.8-7.0) Baso % (Auto) (0.1-1.2) % Neut # (Auto) (1.78-5.38) K/mm3 Lymph # (Auto) (1.32-3.57) K/mm3 Wayne # (Auto) (0.30-0.82) K/mm3 Eos # (Auto) (0.04-0.54) K/mm3 Baso # (Auto) (0.01-0.08) K/mm3 Neutrophils % (Manual) 76 H (40-60) % Band Neutrophils % 2 (0-10) % Lymphocytes % (Manual) 17 L (20-40) % Atypical Lymphs % 0 % Monocytes % (Manual) 5 (2-10) % Eosinophils % (Manual) 0 L (0.8-7.0) % Basophils % (Manual) 0 L (0.2-1.2) Platelet Estimate Adequate RBC Morph Comment Normal PT 15.2 H (9.5-12.1) SECONDS INR 1.40 APTT 34 H (24-31) SECONDS Sodium 141 (136-145) mEq/L Potassium 4.3 (3.5-5.1) mEq/L Chloride 107 (98-107) mEq/L Carbon Dioxide 23 (21-32) mEq/L Anion Gap 15.3 H (5-15) BUN 23 H (7-18) mg/dL Creatinine 1.2 (0.7-1.3) mg/dL Est Cr Clr Drug Dosing 50.55 mL/min Estimated GFR (MDRD) 58 (>60) mL/min BUN/Creatinine Ratio 19.2 H (14-18) Glucose 150 H (83-115) mg/dL POC Glucose (83-110) mg/dL Calcium 8.6 (8.5-10.1) mg/dL Magnesium 1.5 L (1.8-2.4) mg/dl Total Bilirubin 1.4 H (0.2-1.0) mg/dL AST 37 (15-37) U/L ALT 40 (16-63) U/L Alkaline Phosphatase 43 L (46-116) U/L CK-MB (CK-2) 2.8 (0-3.6) ng/ml Troponin I 0.049 (0.00-0.056) ng/mL C-Reactive Protein 0.4 (<1.0) mg/dL NT-Pro-B Natriuret Pep (0-450) pg/mL Total Protein 6.5 (6.4-8.2) g/dl Albumin 3.2 L (3.4-5.0) g/dl Globulin 3.3 gm/dL Albumin/Globulin Ratio 1.0 (1-2) Free T4 (0.76-1.46) ng/dL TSH 3rd Generation (0.358-3.74) uIU/mL Urine Color (Yellow) Urine Appearance (Clear) Urine pH (5.0-8.0) Ur Specific [place] (1.005-1.030) Urine Protein (Negative) Urine Glucose (UA) (Negative) Urine Ketones (Negative) Urine Occult Blood (Negative) Urine Nitrite (Negative) Urine Bilirubin (Negative) Urine Urobilinogen (0.2-1.0) Ur Leukocyte Esterase (Negative) Urine RBC (0-5) /hpf Urine WBC (0-5) /hpf Ur Epithelial Cells (0-5) /hpf Urine Bacteria (FEW) /hpf Hyaline Casts (0-5) /lpf Urine Mucus (FEW) /hpf Digoxin < 0.2 L (0.9-2.0) ng/mL 07/31/18 07/31/18 07/31/18 Range/Units 17:28 18:49 20:57 WBC (4.23-9.07) K/mm3 RBC (4.63-6.08) M/mm3 Hgb (13.7-17.5) gm/L Hct (40.1-51.0) % MCV (79.0-92.2) fl MCH (25.7-32.2) pg MCHC (32.2-35.5) g/dl RDW Std Deviation (35.1-43.9) fL Plt Count (163-337) K/mm3 MPV (9.4-12.3) fl Neut % (Auto) (34.0-67.9) % Lymph % (Auto) (21.8-53.1) % Wayne % (Auto) (5.3-12.2) % Eos % (Auto) (0.8-7.0) Baso % (Auto) (0.1-1.2) % Neut # (Auto) (1.78-5.38) K/mm3 Lymph # (Auto) (1.32-3.57) K/mm3 Wayne # (Auto) (0.30-0.82) K/mm3 Eos # (Auto) (0.04-0.54) K/mm3 Baso # (Auto) (0.01-0.08) K/mm3 Neutrophils % (Manual) (40-60) % Band Neutrophils % (0-10) % Lymphocytes % (Manual) (20-40) % Atypical Lymphs % % Monocytes % (Manual) (2-10) % Eosinophils % (Manual) (0.8-7.0) % Basophils % (Manual) (0.2-1.2) Platelet Estimate RBC Morph Comment PT (9.5-12.1) SECONDS INR APTT (24-31) SECONDS Sodium (136-145) mEq/L Potassium (3.5-5.1) mEq/L Chloride (98-107) mEq/L Carbon Dioxide (21-32) mEq/L Anion Gap (5-15) BUN (7-18) mg/dL Creatinine (0.7-1.3) mg/dL Est Cr Clr Drug Dosing mL/min Estimated GFR (MDRD) (>60) mL/min BUN/Creatinine Ratio (14-18) Glucose (83-115) mg/dL POC Glucose 265 H (83-110) mg/dL Calcium (8.5-10.1) mg/dL Magnesium (1.8-2.4) mg/dl Total Bilirubin (0.2-1.0) mg/dL AST (15-37) U/L ALT (16-63) U/L Alkaline Phosphatase (46-116) U/L CK-MB (CK-2) (0-3.6) ng/ml Troponin I (0.00-0.056) ng/mL C-Reactive Protein (<1.0) mg/dL NT-Pro-B Natriuret Pep 5730 H (0-450) pg/mL Total Protein (6.4-8.2) g/dl Albumin (3.4-5.0) g/dl Globulin gm/dL Albumin/Globulin Ratio (1-2) Free T4 (0.76-1.46) ng/dL TSH 3rd Generation (0.358-3.74) uIU/mL Urine Color Yellow (Yellow) Urine Appearance Clear (Clear) Urine pH 6.0 (5.0-8.0) Ur Specific [place] > or = 1.030 (1.005-1.030) Urine Protein 3+ H (Negative) Urine Glucose (UA) Negative (Negative) Urine Ketones Negative (Negative) Urine Occult Blood 1+ H (Negative) Urine Nitrite Negative (Negative) Urine Bilirubin Negative (Negative) Urine Urobilinogen 0.2 (0.2-1.0) Ur Leukocyte Esterase Trace H (Negative) Urine RBC 10-20 H (0-5) /hpf Urine WBC 10-20 H (0-5) /hpf Ur Epithelial Cells 0-5 (0-5) /hpf Urine Bacteria Few (FEW) /hpf Hyaline Casts 5-10 H (0-5) /lpf Urine Mucus Moderate H (FEW) /hpf Digoxin (0.9-2.0) ng/mL 08/01/18 08/01/18 Range/Units 05:35 05:35 WBC 5.73 (4.23-9.07) K/mm3 RBC 4.79 (4.63-6.08) M/mm3 Hgb 13.6 L (13.7-17.5) gm/L Hct 41.7 (40.1-51.0) % MCV 87.1 (79.0-92.2) fl MCH 28.4 (25.7-32.2) pg MCHC 32.6 (32.2-35.5) g/dl RDW Std Deviation 47.8 H (35.1-43.9) fL Plt Count 136 L (163-337) K/mm3 MPV 10.0 (9.4-12.3) fl Neut % (Auto) 69.6 H (34.0-67.9) % Lymph % (Auto) 17.8 L (21.8-53.1) % Wayne % (Auto) 11.9 (5.3-12.2) % Eos % (Auto) 0.3 L (0.8-7.0) Baso % (Auto) 0.2 (0.1-1.2) % Neut # (Auto) 3.99 (1.78-5.38) K/mm3 Lymph # (Auto) 1.02 L (1.32-3.57) K/mm3 Wayne # (Auto) 0.68 (0.30-0.82) K/mm3 Eos # (Auto) 0.02 L (0.04-0.54) K/mm3 Baso # (Auto) 0.01 (0.01-0.08) K/mm3 Neutrophils % (Manual) (40-60) % Band Neutrophils % (0-10) % Lymphocytes % (Manual) (20-40) % Atypical Lymphs % % Monocytes % (Manual) (2-10) % Eosinophils % (Manual) (0.8-7.0) % Basophils % (Manual) (0.2-1.2) Platelet Estimate RBC Morph Comment PT (9.5-12.1) SECONDS INR APTT (24-31) SECONDS Sodium 140 (136-145) mEq/L Potassium 4.3 (3.5-5.1) mEq/L Chloride 105 (98-107) mEq/L Carbon Dioxide 27 (21-32) mEq/L Anion Gap 12.3 (5-15) BUN 24 H (7-18) mg/dL Creatinine 1.3 (0.7-1.3) mg/dL Est Cr Clr Drug Dosing 46.66 mL/min Estimated GFR (MDRD) 53 (>60) mL/min BUN/Creatinine Ratio 18.5 H (14-18) Glucose 132 H (83-115) mg/dL POC Glucose (83-110) mg/dL Calcium 8.4 L (8.5-10.1) mg/dL Magnesium 1.9 (1.8-2.4) mg/dl Total Bilirubin (0.2-1.0) mg/dL AST (15-37) U/L ALT (16-63) U/L Alkaline Phosphatase (46-116) U/L CK-MB (CK-2) (0-3.6) ng/ml Troponin I (0.00-0.056) ng/mL C-Reactive Protein (<1.0) mg/dL NT-Pro-B Natriuret Pep (0-450) pg/mL Total Protein (6.4-8.2) g/dl Albumin (3.4-5.0) g/dl Globulin gm/dL Albumin/Globulin Ratio (1-2) Free T4 1.18 (0.76-1.46) ng/dL TSH 3rd Generation 1.656 (0.358-3.74) uIU/mL Urine Color (Yellow) Urine Appearance (Clear) Urine pH (5.0-8.0) Ur Specific [place] (1.005-1.030) Urine Protein (Negative) Urine Glucose (UA) (Negative) Urine Ketones (Negative) Urine Occult Blood (Negative) Urine Nitrite (Negative) Urine Bilirubin (Negative) Urine Urobilinogen (0.2-1.0) Ur Leukocyte Esterase (Negative) Urine RBC (0-5) /hpf Urine WBC (0-5) /hpf Ur Epithelial Cells (0-5) /hpf Urine Bacteria (FEW) /hpf Hyaline Casts (0-5) /lpf Urine Mucus (FEW) /hpf Digoxin (0.9-2.0) ng/mL Med Orders - Current: Current Medications Acetaminophen (Tylenol) 650 mg PO Q4H PRN PRN Reason: Pain (Mild 1-3)/fever Hydrocodone Bitart/Acetaminophen (Torreon 325-5 Mg) 1 tab PO Q4H PRN PRN Reason: Pain (moderate 4-6) Last Admin: 08/01/18 01:01 Dose: 1 tab Albuterol/Ipratropium (Duoneb 3.0-0.5 Mg/3 Ml) 3 ml NEB Q4H PRN PRN Reason: Shortness Of Breath/wheezing Alogliptin Benzoate (Alogliptin) 12.5 mg PO BID [facility] Last Admin: 07/31/18 20:52 Dose: 12.5 mg Amiodarone HCl (Cordarone) 300 mg PO BID [facility] Apixaban (Eliquis) 5 mg PO BID [facility] Last Admin: 07/31/18 20:55 Dose: 5 mg Bisacodyl (Dulcolax) 5 mg PO DAILY PRN PRN Reason: Constipation Bumetanide (Bumex) 0.5 mg IVPUSH BIDDIURETIC [facility] Last Admin: 08/01/18 06:10 Dose: 0.5 mg Carvedilol (Coreg) 12.5 mg PO BIDMEALS [facility] Last Admin: 07/31/18 20:54 Dose: 12.5 mg Docusate Sodium (Colace) 100 mg PO BID PRN PRN Reason: Constipation Famotidine (Pepcid) 20 mg PO DAILY [facility] Hydralazine HCl (Apresoline) 20 mg IVPUSH Q4H PRN PRN Reason: Hypertension Hydromorphone HCl (Dilaudid) 0.25 mg IVPUSH Q2H PRN PRN Reason: Pain (severe 7-10) Amiodarone HCl/Dextrose (Nexterone In Dextrose 360 Mg/200 Ml) 360 mg in 200 mls @ 33.333 mls/hr IV ASDIRECTED [facility]; Protocol Last Infusion: 07/31/18 21:07 Dose: 0 mls/hr Promethazine HCl 6.25 mg/ (Sodium Chloride) 50.25 mls @ 100 mls/hr IV Q6H PRN PRN Reason: Nausea/Vomiting Insulin Human Lispro (Humalog) 0 unit SUBCUT QIDACANDBED [facility]; Protocol Last Admin: 07/31/18 22:17 Dose: 3 units Lisinopril (Prinivil) 10 mg PO DAILY [facility] Lorazepam (Ativan) 0.25 mg IV Q6H PRN PRN Reason: Anxiety Magnesium Sulfate (Pharmacy To Dose - Magnesium Replacement) 1 dose .XX ASDIRECTED [facility] Metformin HCl (Glucophage) 1,000 mg PO BID [facility] Last Admin: 07/31/18 20:58 Dose: 1,000 mg Metoprolol Tartrate (Lopressor) 5 mg IVPUSH Q4H PRN PRN Reason: Tachycardia Ondansetron HCl (Zofran) 4 mg IV Q6H PRN PRN Reason: Nausea/Vomiting Potassium Chloride (Pharmacy To Dose - Potassium Replacement) 1 dose .XX ASDIRECTED [facility] Senna/Docusate Sodium (Senna Plus) 1 tab PO BID PRN PRN Reason: Constipation Timolol Maleate (Timoptic 0.25% Ophth Soln) 0 ml EYEBOTH BID [facility] Last Admin: 07/31/18 21:06 Dose: Not Given Discontinued Medications Amiodarone HCl (Cordarone) 300 mg PO ONETIME ONE Stop: 07/31/18 21:01 Last Admin: 07/31/18 20:53 Dose: 300 mg Bumetanide (Bumex) 0.5 mg IVPUSH ONETIME ONE Stop: 08/01/18 14:01 Furosemide (Lasix) 40 mg IVPUSH NOW ONE Stop: 07/31/18 19:02 Last Admin: 07/31/18 19:13 Dose: 40 mg Furosemide (Lasix) 20 mg PO DAILY [facility] Hydromorphone HCl (Dilaudid) 0.25 mg IVPUSH ONETIME ONE Stop: 07/31/18 19:03 Last Admin: 07/31/18 19:11 Dose: 0.25 mg Amiodarone HCl/Dextrose (Nexterone In Dextrose 150 Mg/100 Ml) 100 mls @ 600 mls /hr IV .BOLUS ONE; Protocol Stop: 07/31/18 17:27 Last Admin: 07/31/18 17:25 Dose: 600 mls/hr Magnesium Sulfate/Dextrose 1 (gm/ Premix) 100 mls @ 100 mls/hr IV ONETIME ONE Stop: 07/31/18 22:40 Last Admin: 07/31/18 22:17 Dose: 100 mls/hr Magnesium Oxide (Magnesium Oxide) 400 mg PO ONETIME ONE Stop: 07/31/18 20:01 Last Admin: 07/31/18 20:54 Dose: 400 mg - Exam General: Alert, Oriented, Cooperative, No Acute Distress, Other (Obese) HEENT: Pupils Equal, Pupils Reactive, EOMI, Mucous Membr. Moist/[place] Neck: Supple, Trachea Midline, No JVD, No Thyromegaly, Other (short and thick) Lungs: Normal Respiratory Effort, Decreased Breath Sounds Cardiovascular: Irregular Rhythm, Other (Irregular rate) GI/Abdominal Exam: Normal Bowel Sounds, Soft, Non-Tender, No Organomegaly, No Abnormal Bruit, No Mass, Other (Obese) (Male) Exam: Deferred Back Exam: Normal Inspection, Decreased Range of Motion Extremities: Normal Inspection, Normal Range of Motion, Non-Tender, No Pedal Edema, Normal Capillary Refill Peripheral Pulses: 2+: Dorsalis Pedis (R) Skin: Warm, Dry, Intact Neurological: No New Focal Deficit. No: Normal Gait Psy/Mental Status: Alert, Normal Affect, Normal Mood - Problem List Review Problem List Initiated/Reviewed/Updated: Yes - My Orders Last 24 Hours: My Active Orders 07/31/18 19:21 Height and Weight [RC] 04 Oxygen Therapy [RC] PRN Up With Assistance [RC] ASDIRECTED Up ad Shakila [RC] ASDIRECTED VTE/DVT Education [RC] BID Vital Signs [RC] Q4HR Acetaminophen [Tylenol] 650 mg PO Q4H PRN Acetaminophen/HYDROcodone [[place]reon 325-5 MG] 1 tab PO Q4H PRN Albuterol/Ipratropium [DuoNeb 3.0-0.5 MG/3 ML] 3 ml NEB Q4H PRN Bisacodyl [Dulcolax] 5 mg PO DAILY PRN Docusate Sodium [Colace] 100 mg PO BID PRN Docusate Sodium/Sennosides [Senna Plus] 1 tab PO BID PRN HYDROmorphone [Dilaudid] 0.25 mg IVPUSH Q2H PRN LORazepam [Ativan] 0.25 mg IV Q6H PRN Metoprolol Tartrate [Lopressor] 5 mg IVPUSH Q4H PRN Ondansetron [Zofran] 4 mg IV Q6H PRN Promethazine [Phenergan] 6.25 mg Sodium Chloride 0.9% [Normal Saline] 50 ml IV Q6H hydrALAZINE [Apresoline] 20 mg IVPUSH Q4H PRN 07/31/18 19:22 Cardiac Monitoring [RC] CONTINUOUS Intake and Output [RC] 04,16 Pulse Oximetry [RC] PRN 07/31/18 19:23 RT Aerosol Therapy [RC] ASDIRECTED 07/31/18 19:25 Consult to Case Management/Tissue Technologist [CONS] Routine OT Evaluation and Treatment [CONS] Routine PT Evaluation and Treatment [CONS] Routine 07/31/18 19:30 Pharmacy to Dose - Magnesium R [Pharmacy to Dose - Magnesium Replacement] 1 dose .XX ASDIRECTED Pharmacy to Dose - Potassium R [Pharmacy to Dose - Potassium Replacement] 1 dose .XX ASDIRECTED 07/31/18 19:40 Blood Glucose Check, Bedside [RC] QIDACANDBED 07/31/18 20:09 EKG 12 Lead [EK] Routine 07/31/18 21:00 Alogliptin Benzoate [Alogliptin] 12.5 mg PO BID Apixaban [Eliquis] 5 mg PO BID Carvedilol [Coreg] 12.5 mg PO BIDMEALS Timolol Maleate [Timoptic 0.25% Ophth Soln] 0 ml EYEBOTH BID metFORMIN [Glucophage] 1,000 mg PO BID 07/31/18 22:00 Insulin Lispro [HumaLOG] See Protocol SUBCUT QIDACANDBED 07/31/18 Dinner Consistent Carbohydrate Diet [DIET] Heart Healthy Diet [DIET] 08/01/18 05:35 A1C [GLYCOSYLATED HEMOGLOBIN,HGBA1C] [CHEM] AM 08/01/18 06:00 Bumetanide [Bumex] 0.5 mg IVPUSH BIDDIURETIC 08/01/18 07:00 Echo Comp wo Cont [US] Routine 08/01/18 09:00 Amiodarone [Cordarone] 300 mg PO BID Lisinopril [Prinivil] 10 mg PO DAILY 08/02/18 05:11 BASIC METABOLIC PANEL,BMP [CHEM] AM CBC WITH AUTO DIFF [HEME] AM MAGNESIUM [CHEM] AM 08/03/18 05:11 BASIC METABOLIC PANEL,BMP [CHEM] AM CBC WITH AUTO DIFF [HEME] AM MAGNESIUM [CHEM] AM - Plan Plan:: Assessment/Plan: AFib w/ RVR * Acute on Chronic * Also in and out; he was sinus rhythm last night and it looks like he has gone back to atrial fibrillation with heart rate as low at 104 and as high as 125s on monitor * Risk factor: Stopped taking Carvedilol--> Restart Carvedilol: consider switching to Metoprolol 25 mg po BID if intolerant may do half dose by trial * Pt denies dizziness, CP, SOB * Persistent tachycardia x 2+ weeks: * During radiation treatment in [place] over the past 4 weeks, had EKG w/ HR 140s- 150s but was asymptomatic so no treatment was given * Pt was at clinic today and identified to be in Aflutter/Afib with wide- complex tachycardia at 145bpm; was sent to ED * He is on Digoxin * EKG in ED suggests wide-complex tachycardia d/t L anterior fascicular block and likely RBBB; mildly prolonged QT interval * CXR per ED read: Mod cardiomegaly w/ mild diffuse vascular congestion; pending formal read * Amiodarone started in ED--> drip was stopped last night and switched to oral dosing * Thyroid panel are wnl * F/U with cardiology CHF * Acute (no one has ever told him before) but this is likely chronic * Risk Factors: Afib, HTN, stopped his Lasix and Carvedilol--> Restart Carvedilol; will now switch to Metoprolol for better rate control * BNP 5730-->5973, Pedal edema * Suspect he has underlying cardiomyopathy; his heart is enlarged on chest x-ray * ECHO to be done Friday; no prior studies to compare to * Lasix given in ED x1 * Bumex IVP BID DM2 on * A1C 8.10 * BS not well controlled * QID Glucose checks, ISS change to high dose * Dietary and Diabetic consult * Provided reading materials for GLP1 and SLG2 Inhibitors Chronic: Afib on Eliquis, on Carvedilol HTN on Lisinopril CHF previously on Carvedilol, Lasix Appendectomy Cholecystectomy Cataract, Glaucoma Prostate CA --> radiation treatment in [place], [place] (4 weeks completed, 3 weeks to go) Class II Obesity Plan: He is clinically much better but rate wilder, he needs more time for loading phase with amiodarone Routine AM Labs Orders as above Low dose HCTZ BID Consistent Carb/Heart Healthy Diet DVT/GI prophylaxis CM/SW for d/c planning PT/OT to assess and treat Code Status: Full Code; PCP: Erica Levy PA-C at [facility]
[2018-08-01] MEDS: Carvedilol 12.5 MG Tab PO SCH (08:05)
[2018-08-01] MEDS: Insulin Lispro 100 UNIT/ML 10 ML VIAL SUBCUT SCH ×4 (08:21→21:03)
[2018-08-01 08:24] LABS: HEMOGLOBIN A1C 8.1 % (4.50-6.20)
[2018-08-01] MEDS: Lisinopril 10 MG Tab PO SCH (08:24)
[2018-08-01] MEDS: Alogliptin 12.5 MG TABLET PO SCH ×2 (08:24→20:10)
[2018-08-01] MEDS: Famotidine 20 MG Tab PO SCH (08:25)
[2018-08-01] MEDS: metFORMIN 500 MG Tab PO SCH ×2 (08:25→20:11)
[2018-08-01] MEDS: Apixaban 5 MG Tab PO SCH ×2 (08:25→20:09)
[2018-08-01] MEDS: Amiodarone 200 MG Tab PO SCH ×2 (08:26→20:10)
--- NOTE | 2018-08-01 08:49 | CR ---
Chest: Portable view of the chest was obtained. Comparison: Prior chest x-ray performed earlier on the same day (2:05 PM). Heart is slightly enlarged. Upper mediastinum is normal. Tortuous thoracic aorta is incidentally noted. Lungs are clear with no acute parenchymal change. Bony structures are grossly intact. Impression: 1. Findings as noted above. Nothing acute is appreciated on portable chest x-ray. Diagnostic code #2
[2018-08-01] MEDS ORDERED: Furosemide 20 MG Tab PO SCH (09:00)
[2018-08-01] MEDS ORDERED: Metoprolol Tartrate 25 MG Tab PO ONE (09:35)
[2018-08-01] MEDS: Timolol Maleate 0.25% Ophth Soln 5 ML Bottle EYEBOTH SCH ×2 (09:47→20:22)
[2018-08-01] MEDS ORDERED: Bumetanide 1 MG/4 ML MDV IVPUSH ONE (14:00)
[2018-08-01] MEDS: Hydrochlorothiazide 12.5 MG Cap PO SCH (17:53)
[2018-08-01] MEDS: Metoprolol Tartrate 25 MG Tab PO SCH (20:12)
[2018-08-01] MEDS ORDERED: Metoprolol Tartrate 25 MG Tab PO SCH (21:00)
[2018-08-02] MEDS: Bumetanide 1 MG/4 ML MDV IVPUSH SCH (05:00)
[2018-08-02] MEDS: Hydrochlorothiazide 12.5 MG Cap PO SCH (05:00)
[2018-08-02] MEDS: Insulin Lispro 100 UNIT/ML 10 ML VIAL SUBCUT SCH ×4 (06:34→20:37)
--- NOTE | 2018-08-02 07:57 | PCM.PN ---
- General Info Date of Service: 08/02/18 Admission Dx/Problem (Free Text): Afib with RVR Subjective Update: Follow Up Functional Status: Reports: Pain Controlled, Tolerating Diet, Ambulating, Urinating. Denies: New Symptoms - Review of Systems General: Denies: Fever, Weakness, Fatigue, Malaise, Chills HEENT: Reports: No Symptoms Pulmonary: Denies: Shortness of Breath, Cough, Sputum, Wheezing Cardiovascular: Denies: Chest Pain, Dyspnea on Exertion, Edema, Lightheadedness Gastrointestinal: Denies: Abdominal Pain, Decreased Appetite, Nausea, Vomiting Genitourinary: Reports: Frequency Musculoskeletal: Reports: No Symptoms Skin: Reports: No Symptoms Neurological: Denies: Confusion, Weakness, Gait Disturbance Psychiatric: Denies: Depression, Anxiety, Agitation, Hallucinations Systems Review Comment:: No overnight or acute issues. He slept pretty good and has no complaints this AM. His glucose is fairly controlled. His proBNP is now 4693 ([age] yest). He lost about 7lbs since admission. 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 He is pretty much bet 70-80s at rest and 80-90s with activities w/o symptoms. - Patient Data Vitals - Most Recent: Last Vital Signs Temp 36.2 C 08/02/18 03:29 Pulse 60 08/02/18 03:29 Resp 15 08/02/18 03:29 BP 129/78 08/02/18 03:29 Pulse Ox 99 08/02/18 03:29 Weight - Most Recent: 102.875 kg I&O - Last 24 Hours: Intake & Output 08/01/18 08/02/18 08/02/18 22:59 06:59 14:59 Intake Total 1240 200 Output Total 675 500 Balance 565 -300 Lab Results Last 24 Hours: Laboratory Results - last 24 hr 08/01/18 08/01/18 08/01/18 Range/Units 05:35 07:55 09:20 WBC (4.23-9.07) K/mm3 RBC (4.63-6.08) M/mm3 Hgb (13.7-17.5) gm/L Hct (40.1-51.0) % MCV (79.0-92.2) fl MCH (25.7-32.2) pg MCHC (32.2-35.5) g/dl RDW Std Deviation (35.1-43.9) fL Plt Count (163-337) K/mm3 MPV (9.4-12.3) fl Neut % (Auto) (34.0-67.9) % Lymph % (Auto) (21.8-53.1) % [place] % (Auto) (5.3-12.2) % Eos % (Auto) (0.8-7.0) Baso % (Auto) (0.1-1.2) % Neut # (Auto) (1.78-5.38) K/mm3 Lymph # (Auto) (1.32-3.57) K/mm3 [place] # (Auto) (0.30-0.82) K/mm3 Eos # (Auto) (0.04-0.54) K/mm3 Baso # (Auto) (0.01-0.08) K/mm3 Manual Slide Review Sodium (136-145) mEq/L Potassium (3.5-5.1) mEq/L Chloride (98-107) mEq/L Carbon Dioxide (21-32) mEq/L Anion Gap (5-15) BUN (7-18) mg/dL Creatinine (0.7-1.3) mg/dL Est Cr Clr Drug Dosing mL/min Estimated GFR (MDRD) (>60) mL/min BUN/Creatinine Ratio (14-18) Glucose (83-115) mg/dL POC Glucose 157 H (83-110) mg/dL Hemoglobin A1c 8.10 H (4.50-6.20) % Calcium (8.5-10.1) mg/dL Magnesium (1.8-2.4) mg/dl NT-Pro-B Natriuret Pep 5973 H (0-450) pg/mL 08/01/18 08/01/18 08/01/18 Range/Units 11:59 17:35 20:09 WBC (4.23-9.07) K/mm3 RBC (4.63-6.08) M/mm3 Hgb (13.7-17.5) gm/L Hct (40.1-51.0) % MCV (79.0-92.2) fl MCH (25.7-32.2) pg MCHC (32.2-35.5) g/dl RDW Std Deviation (35.1-43.9) fL Plt Count (163-337) K/mm3 MPV (9.4-12.3) fl Neut % (Auto) (34.0-67.9) % Lymph % (Auto) (21.8-53.1) % [place] % (Auto) (5.3-12.2) % Eos % (Auto) (0.8-7.0) Baso % (Auto) (0.1-1.2) % Neut # (Auto) (1.78-5.38) K/mm3 Lymph # (Auto) (1.32-3.57) K/mm3 [place] # (Auto) (0.30-0.82) K/mm3 Eos # (Auto) (0.04-0.54) K/mm3 Baso # (Auto) (0.01-0.08) K/mm3 Manual Slide Review Sodium (136-145) mEq/L Potassium (3.5-5.1) mEq/L Chloride (98-107) mEq/L Carbon Dioxide (21-32) mEq/L Anion Gap (5-15) BUN (7-18) mg/dL Creatinine (0.7-1.3) mg/dL Est Cr Clr Drug Dosing mL/min Estimated GFR (MDRD) (>60) mL/min BUN/Creatinine Ratio (14-18) Glucose (83-115) mg/dL POC Glucose 150 H 181 H 216 H (83-110) mg/dL Hemoglobin A1c (4.50-6.20) % Calcium (8.5-10.1) mg/dL Magnesium (1.8-2.4) mg/dl NT-Pro-B Natriuret Pep (0-450) pg/mL 08/02/18 08/02/18 08/02/18 Range/Units 05:40 05:40 05:40 WBC 6.02 (4.23-9.07) K/mm3 RBC 4.66 (4.63-6.08) M/mm3 Hgb 13.3 L (13.7-17.5) gm/L Hct 40.9 (40.1-51.0) % MCV 87.8 (79.0-92.2) fl MCH 28.5 (25.7-32.2) pg MCHC 32.5 (32.2-35.5) g/dl RDW Std Deviation 48.0 H (35.1-43.9) fL Plt Count 153 L (163-337) K/mm3 MPV 10.0 (9.4-12.3) fl Neut % (Auto) 69.5 H (34.0-67.9) % Lymph % (Auto) 16.1 L (21.8-53.1) % [place] % (Auto) 13.5 H (5.3-12.2) % Eos % (Auto) 0.7 L (0.8-7.0) Baso % (Auto) 0.2 (0.1-1.2) % Neut # (Auto) 4.19 (1.78-5.38) K/mm3 Lymph # (Auto) 0.97 L (1.32-3.57) K/mm3 [place] # (Auto) 0.81 (0.30-0.82) K/mm3 Eos # (Auto) 0.04 (0.04-0.54) K/mm3 Baso # (Auto) 0.01 (0.01-0.08) K/mm3 Manual Slide Review Not Reportable Sodium 140 (136-145) mEq/L Potassium 4.0 (3.5-5.1) mEq/L Chloride 103 (98-107) mEq/L Carbon Dioxide 28 (21-32) mEq/L Anion Gap 13.0 (5-15) BUN 32 H (7-18) mg/dL Creatinine 1.7 H (0.7-1.3) mg/dL Est Cr Clr Drug Dosing 35.68 mL/min Estimated GFR (MDRD) 39 (>60) mL/min BUN/Creatinine Ratio 18.8 H (14-18) Glucose 126 H (83-115) mg/dL POC Glucose (83-110) mg/dL Hemoglobin A1c (4.50-6.20) % Calcium 8.4 L (8.5-10.1) mg/dL Magnesium 1.7 L (1.8-2.4) mg/dl NT-Pro-B Natriuret Pep 4693 H (0-450) pg/mL 02/24/19 Range/Units 05:41 WBC (4.23-9.07) K/mm3 RBC (4.63-6.08) M/mm3 Hgb (13.7-17.5) gm/L Hct (40.1-51.0) % MCV (79.0-92.2) fl MCH (25.7-32.2) pg MCHC (32.2-35.5) g/dl RDW Std Deviation (35.1-43.9) fL Plt Count (163-337) K/mm3 MPV (9.4-12.3) fl Neut % (Auto) (34.0-67.9) % Lymph % (Auto) (21.8-53.1) % [place] % (Auto) (5.3-12.2) % Eos % (Auto) (0.8-7.0) Baso % (Auto) (0.1-1.2) % Neut # (Auto) (1.78-5.38) K/mm3 Lymph # (Auto) (1.32-3.57) K/mm3 [place] # (Auto) (0.30-0.82) K/mm3 Eos # (Auto) (0.04-0.54) K/mm3 Baso # (Auto) (0.01-0.08) K/mm3 Manual Slide Review Sodium (136-145) mEq/L Potassium (3.5-5.1) mEq/L Chloride (98-107) mEq/L Carbon Dioxide (21-32) mEq/L Anion Gap (5-15) BUN (7-18) mg/dL Creatinine (0.7-1.3) mg/dL Est Cr Clr Drug Dosing mL/min Estimated GFR (MDRD) (>60) mL/min BUN/Creatinine Ratio (14-18) Glucose (83-115) mg/dL POC Glucose 142 H (83-110) mg/dL Hemoglobin A1c (4.50-6.20) % Calcium (8.5-10.1) mg/dL Magnesium (1.8-2.4) mg/dl NT-Pro-B Natriuret Pep (0-450) pg/mL Med Orders - Current: Current Medications Acetaminophen (Tylenol) 650 mg PO Q4H PRN PRN Reason: Pain (Mild 1-3)/fever Hydrocodone Bitart/Acetaminophen ([place] 325-5 Mg) 1 tab PO Q4H PRN PRN Reason: Pain (moderate 4-6) Last Admin: 08/01/18 20:19 Dose: 1 tab Albuterol/Ipratropium (Duoneb 3.0-0.5 Mg/3 Ml) 3 ml NEB Q4H PRN PRN Reason: Shortness Of Breath/wheezing Alogliptin Benzoate (Alogliptin) 12.5 mg PO BID [facility] Last Admin: 08/01/18 20:10 Dose: 12.5 mg Amiodarone HCl (Cordarone) 300 mg PO BID [facility] Last Admin: 08/01/18 20:10 Dose: 300 mg Apixaban (Eliquis) 5 mg PO BID [facility] Last Admin: 08/01/18 20:09 Dose: 5 mg Bisacodyl (Dulcolax) 5 mg PO DAILY PRN PRN Reason: Constipation Bumetanide (Bumex) 0.5 mg IVPUSH BIDDIURETIC [facility] Last Admin: 08/02/18 05:00 Dose: 0.5 mg Docusate Sodium (Colace) 100 mg PO BID PRN PRN Reason: Constipation Famotidine (Pepcid) 20 mg PO DAILY [facility] Last Admin: 08/01/18 08:25 Dose: 20 mg Hydralazine HCl (Apresoline) 20 mg IVPUSH Q4H PRN PRN Reason: Hypertension Hydrochlorothiazide (Hydrochlorothiazide) 12.5 mg PO BIDDIURETIC [facility] Last Admin: 08/02/18 05:00 Dose: 12.5 mg Hydromorphone HCl (Dilaudid) 0.25 mg IVPUSH Q2H PRN PRN Reason: Pain (severe 7-10) Amiodarone HCl/Dextrose (Nexterone In Dextrose 360 Mg/200 Ml) 360 mg in 200 mls @ 33.333 mls/hr IV ASDIRECTED [facility]; Protocol Last Infusion: 07/31/18 21:07 Dose: 0 mls/hr Promethazine HCl 6.25 mg/ (Sodium Chloride) 50.25 mls @ 100 mls/hr IV Q6H PRN PRN Reason: Nausea/Vomiting Insulin Human Lispro (Humalog) 0 unit SUBCUT QIDACANDBED [facility]; Protocol Last Admin: 08/02/18 06:34 Dose: Not Given Lisinopril (Prinivil) 10 mg PO DAILY [facility] Last Admin: 08/01/18 08:24 Dose: 10 mg Lorazepam (Ativan) 0.25 mg IV Q6H PRN PRN Reason: Anxiety Magnesium Sulfate (Pharmacy To Dose - Magnesium Replacement) 0 dose .XX ASDIRECTED PRN PRN Reason: RX TO WATCH MAG Metformin HCl (Glucophage) 1,000 mg PO BID [facility] Last Admin: 08/01/18 20:11 Dose: 1,000 mg Metoprolol Tartrate (Lopressor) 5 mg IVPUSH Q4H PRN PRN Reason: Tachycardia Metoprolol Tartrate (Lopressor) 12.5 mg PO Q12H [facility] Last Admin: 08/01/18 20:12 Dose: 12.5 mg Ondansetron HCl (Zofran) 4 mg IV Q6H PRN PRN Reason: Nausea/Vomiting Last Admin: 08/01/18 14:03 Dose: 4 mg Potassium Chloride (Pharmacy To Dose - Potassium Replacement) 0 dose .XX ASDIRECTED PRN PRN Reason: RX TO WATCH K Senna/Docusate Sodium (Senna Plus) 1 tab PO BID PRN PRN Reason: Constipation Timolol Maleate (Timoptic 0.25% Ophth Soln) 0 ml EYEBOTH BID [facility] Last Admin: 08/01/18 20:22 Dose: 1 drop Discontinued Medications Amiodarone HCl (Cordarone) 300 mg PO ONETIME ONE Stop: 07/31/18 21:01 Last Admin: 07/31/18 20:53 Dose: 300 mg Bumetanide (Bumex) 0.5 mg IVPUSH ONETIME ONE Stop: 08/01/18 14:01 Carvedilol (Coreg) 12.5 mg PO BIDMEALS [facility] Last Admin: 08/01/18 08:05 Dose: 12.5 mg Furosemide (Lasix) 40 mg IVPUSH NOW ONE Stop: 07/31/18 19:02 Last Admin: 07/31/18 19:13 Dose: 40 mg Furosemide (Lasix) 20 mg PO DAILY [facility] Hydromorphone HCl (Dilaudid) 0.25 mg IVPUSH ONETIME ONE Stop: 07/31/18 19:03 Last Admin: 07/31/18 19:11 Dose: 0.25 mg Amiodarone HCl/Dextrose (Nexterone In Dextrose 150 Mg/100 Ml) 100 mls @ 600 mls /hr IV .BOLUS ONE; Protocol Stop: 07/31/18 17:27 Last Admin: 07/31/18 17:25 Dose: 600 mls/hr Magnesium Sulfate/Dextrose 1 (gm/ Premix) 100 mls @ 100 mls/hr IV ONETIME ONE Stop: 07/31/18 22:40 Last Admin: 07/31/18 22:17 Dose: 100 mls/hr Magnesium Oxide (Magnesium Oxide) 400 mg PO ONETIME ONE Stop: 07/31/18 20:01 Last Admin: 07/31/18 20:54 Dose: 400 mg Metoprolol Tartrate (Lopressor) 25 mg PO ONETIME ONE Stop: 08/01/18 09:36 Last Admin: 08/01/18 09:43 Dose: 25 mg Metoprolol Tartrate (Lopressor) 25 mg PO Q12H TOÑA - Exam General: Alert, Oriented, Cooperative, No Acute Distress, Other (Obese) HEENT: Pupils Equal, Pupils Reactive, EOMI, Mucous Membr. Moist/[place]ck: Supple, Trachea Midline Lungs: Clear to Auscultation, Normal Respiratory Effort Cardiovascular: Irregular Rhythm GI/Abdominal Exam: Normal Bowel Sounds, Soft, Non-Tender, No Organomegaly, No Distention, No Abnormal Bruit, No Mass (Male) Exam: Deferred Back Exam: Normal Inspection, Decreased Range of Motion Extremities: Normal Inspection, Normal Range of Motion, Non-Tender, No Pedal Edema, Normal Capillary Refill Skin: Warm, Dry, Intact Neurological: No New Focal Deficit, Normal Gait Psy/Mental Status: Alert, Normal Affect, Normal Mood - Problem List Review Problem List Initiated/Reviewed/Updated: Yes - My Orders Last 24 Hours: My Active Orders 08/01/18 09:00 Amiodarone [Cordarone] 300 mg PO BID Lisinopril [Prinivil] 10 mg PO DAILY 08/01/18 13:18 EKG 12 Lead [EK] Stat 08/01/18 13:53 EKG 12 Lead [EK] Routine 08/01/18 18:00 hydroCHLOROthiazide 12.5 mg PO BIDDIURETIC 08/01/18 21:00 Metoprolol Tartrate [Lopressor] 12.5 mg PO Q12H 08/02/18 Breakfast Fluid Restriction [DIET] 08/03/18 05:11 BASIC METABOLIC PANEL,BMP [CHEM] AM CBC WITH AUTO DIFF [HEME] AM MAGNESIUM [CHEM] AM PRO B-TYPE NATRIUR PEPT,BNPPRO [CHEM] AM 08/03/18 07:00 Echo Comp wo Cont [US] Routine 08/04/18 05:11 PRO B-TYPE NATRIUR PEPT,BNPPRO [CHEM] AM - Plan Plan:: Assessment/Plan: CHF, Improved * Acute (no one has ever told him before) but this is likely chronic * Risk Factors: Afib, HTN, stopped his Lasix and Carvedilol--> Restart Carvedilol; will now switch to Metoprolol for better rate control * BNP 5730-->5973-->4693, Pedal edema * Suspect he has underlying cardiomyopathy; his heart is enlarged on chest x-ray * ECHO to be done Friday; no prior studies to compare to * Lasix given in ED x1 * Changed Bumex and HCTZ to daily DM2 on * A1C 8.10 * BS now well controlled * Continue Metformin/Alogpitin and High dose ISS * QID Glucose checks, ISS change to high dose * Dietary and Diabetic consult * Provided reading materials for GLP1 and SLG2 Inhibitors Hypomagnesemia * Mg 1.7 * Replete and monitor Resolved: S/p AFib w/ RVR * Acute on Chronic * Also in and out; he was sinus rhythm last night and it looks like he has gone back to atrial fibrillation with heart rate as low at 104 and as high as 125s on monitor * Risk factor: Stopped taking Carvedilol--> Restart Carvedilol: consider switching to Metoprolol 25 mg po BID if intolerant may do half dose by trial * Pt denies dizziness, CP, SOB * Persistent tachycardia x 2+ weeks: * During radiation treatment in [place] over the past 4 weeks, had EKG w/ HR 140s- 150s but was asymptomatic so no treatment was given * Pt was at clinic today and identified to be in Aflutter/Afib with wide- complex tachycardia at 145bpm; was sent to ED * He is on Digoxin * EKG in ED suggests wide-complex tachycardia d/t L anterior fascicular block and likely RBBB; mildly prolonged QT interval * CXR per ED read: Mod cardiomegaly w/ mild diffuse vascular congestion; pending formal read * Amiodarone started in ED--> drip was stopped last night and switched to oral dosing * Thyroid panel are wnl * F/u with cardiology after discharge Chronic: Afib on Eliquis, on Carvedilol HTN on Lisinopril CHF previously on Carvedilol, Lasix Appendectomy Cholecystectomy Cataract, Glaucoma Prostate CA --> radiation treatment in [place], [place] (4 weeks completed, 3 weeks to go) Class II Obesity SG on CPAP Plan: He remains clinically and hemodynamically stable. He is tolerating both Amiodarone and low dose BB w/ controlled HR Routine AM Labs Consistent Carb/Heart Healthy Diet DVT/GI prophylaxis: Eliquis and H2B CM/SW for d/c planning Discontinue PT/OT Encourage to ambulate as tolerated Code Status: Full Code; PCP: Erica Levy PA-C at [facility] Discharge pending 2D echo report
[2018-08-02] MEDS: Apixaban 5 MG Tab PO SCH ×2 (10:05→20:26)
[2018-08-02] MEDS: Alogliptin 12.5 MG TABLET PO SCH ×2 (10:05→20:26)
[2018-08-02] MEDS: Amiodarone 200 MG Tab PO SCH ×2 (10:06→20:26)
[2018-08-02] MEDS: Famotidine 20 MG Tab PO SCH (10:06)
[2018-08-02] MEDS: metFORMIN 500 MG Tab PO SCH ×2 (10:06→20:25)
[2018-08-02] MEDS: Metoprolol Tartrate 25 MG Tab PO SCH ×2 (10:07→20:27)
[2018-08-02] MEDS: Timolol Maleate 0.25% Ophth Soln 5 ML Bottle EYEBOTH SCH ×2 (10:09→20:39)
[2018-08-02] MEDS: Lisinopril 10 MG Tab PO SCH (10:16)
[2018-08-02] MEDS ORDERED: Magnesium Oxide 400 MG Tab PO ONE (12:00)
[2018-08-03] MEDS: Insulin Lispro 100 UNIT/ML 10 ML VIAL SUBCUT SCH ×4 (06:00→21:33)
[2018-08-03] MEDS: Timolol Maleate 0.25% Ophth Soln 5 ML Bottle EYEBOTH SCH ×2 (08:18→20:22)
[2018-08-03] MEDS: Famotidine 20 MG Tab PO SCH (09:00)
[2018-08-03] MEDS: Alogliptin 12.5 MG TABLET PO SCH ×2 (09:00→20:22)
[2018-08-03] MEDS: Metoprolol Tartrate 25 MG Tab PO SCH ×2 (09:00→20:21)
[2018-08-03] MEDS ORDERED: Lisinopril 10 MG Tab PO SCH (09:00)
[2018-08-03] MEDS: Amiodarone 200 MG Tab PO SCH ×2 (09:00→20:21)
[2018-08-03] MEDS: Hydrochlorothiazide 12.5 MG Cap PO SCH (09:00)
[2018-08-03] MEDS ORDERED: Bumetanide 1 MG/4 ML MDV IVPUSH SCH (09:00)
[2018-08-03] MEDS: metFORMIN 500 MG Tab PO SCH ×2 (09:01→20:21)
[2018-08-03] MEDS: Apixaban 5 MG Tab PO SCH ×2 (09:01→20:22)
--- NOTE | 2018-08-03 12:18 | PCM.PN ---
- General Info Date of Service: 08/03/18 Admission Dx/Problem (Free Text): Afib with RVR Subjective Update: Follow Up Functional Status: Reports: Pain Controlled, Tolerating Diet, Ambulating, Urinating. Denies: New Symptoms - Review of Systems General: Denies: Fever, Weakness, Fatigue, Malaise, Chills HEENT: Reports: No Symptoms Pulmonary: Denies: Shortness of Breath, Cough Cardiovascular: Denies: Chest Pain, Orthopnea, PND, Edema, Lightheadedness Gastrointestinal: Denies: Abdominal Pain, Nausea, Vomiting Genitourinary: Reports: Frequency Musculoskeletal: Reports: No Symptoms Skin: Denies: Cyanosis, Mottled, Diaphoresis, Bruising Neurological: Denies: Confusion, Difficulty Walking, Weakness, Gait Disturbance Psychiatric: Denies: Depression, Anxiety, Agitation Systems Review Comment:: No overnight or acute issues. He rested well and remains relatively well. No issues with his heart rate and definitely no new complaints this AM. His ProBNP is down to 3929. - Patient Data Vitals - Most Recent: Last Vital Signs Temp 36.4 C 08/03/18 11:37 Pulse 90 08/03/18 09:00 Resp 18 08/03/18 11:37 BP 124/62 08/03/18 11:37 Pulse Ox 99 08/03/18 11:38 Weight - Most Recent: 102.739 kg I&O - Last 24 Hours: Intake & Output 08/02/18 08/03/18 08/03/18 22:59 06:59 14:59 Intake Total 530 300 300 Output Total 450 400 600 Balance 80 -100 -300 Lab Results Last 24 Hours: Laboratory Results - last 24 hr 08/02/18 08/02/18 08/03/18 Range/Units 16:46 20:20 05:35 WBC 6.70 (4.23-9.07) K/mm3 RBC 4.76 (4.63-6.08) M/mm3 Hgb 13.5 L (13.7-17.5) gm/L Hct 41.6 (40.1-51.0) % MCV 87.4 (79.0-92.2) fl MCH 28.4 (25.7-32.2) pg MCHC 32.5 (32.2-35.5) g/dl RDW Std Deviation 48.5 H (35.1-43.9) fL Plt Count 151 L (163-337) K/mm3 MPV 9.8 (9.4-12.3) fl Neut % (Auto) 74.7 H (34.0-67.9) % Lymph % (Auto) 13.3 L (21.8-53.1) % [place] % (Auto) 11.3 (5.3-12.2) % Eos % (Auto) 0.6 L (0.8-7.0) Baso % (Auto) 0.1 (0.1-1.2) % Neut # (Auto) 5.00 (1.78-5.38) K/mm3 Lymph # (Auto) 0.89 L (1.32-3.57) K/mm3 [place] # (Auto) 0.76 (0.30-0.82) K/mm3 Eos # (Auto) 0.04 (0.04-0.54) K/mm3 Baso # (Auto) 0.01 (0.01-0.08) K/mm3 Sodium (136-145) mEq/L Potassium (3.5-5.1) mEq/L Chloride (98-107) mEq/L Carbon Dioxide (21-32) mEq/L Anion Gap (5-15) BUN (7-18) mg/dL Creatinine (0.7-1.3) mg/dL Est Cr Clr Drug Dosing mL/min Estimated GFR (MDRD) (>60) mL/min BUN/Creatinine Ratio (14-18) Glucose (83-115) mg/dL POC Glucose 120 H 191 H (83-110) mg/dL Calcium (8.5-10.1) mg/dL Magnesium (1.8-2.4) mg/dl 08/03/18 08/03/18 08/03/18 Range/Units 05:35 05:37 11:34 WBC (4.23-9.07) K/mm3 RBC (4.63-6.08) M/mm3 Hgb (13.7-17.5) gm/L Hct (40.1-51.0) % MCV (79.0-92.2) fl MCH (25.7-32.2) pg MCHC (32.2-35.5) g/dl RDW Std Deviation (35.1-43.9) fL Plt Count (163-337) K/mm3 MPV (9.4-12.3) fl Neut % (Auto) (34.0-67.9) % Lymph % (Auto) (21.8-53.1) % [place] % (Auto) (5.3-12.2) % Eos % (Auto) (0.8-7.0) Baso % (Auto) (0.1-1.2) % Neut # (Auto) (1.78-5.38) K/mm3 Lymph # (Auto) (1.32-3.57) K/mm3 [place] # (Auto) (0.30-0.82) K/mm3 Eos # (Auto) (0.04-0.54) K/mm3 Baso # (Auto) (0.01-0.08) K/mm3 Sodium 140 (136-145) mEq/L Potassium 3.9 (3.5-5.1) mEq/L Chloride 104 (98-107) mEq/L Carbon Dioxide 27 (21-32) mEq/L Anion Gap 12.9 (5-15) BUN 34 H (7-18) mg/dL Creatinine 1.6 H (0.7-1.3) mg/dL Est Cr Clr Drug Dosing 37.91 mL/min Estimated GFR (MDRD) 42 (>60) mL/min BUN/Creatinine Ratio 21.3 H (14-18) Glucose 101 (83-115) mg/dL POC Glucose 97 197 H (83-110) mg/dL Calcium 8.5 (8.5-10.1) mg/dL Magnesium 1.9 (1.8-2.4) mg/dl Med Orders - Current: Current Medications Acetaminophen (Tylenol) 650 mg PO Q4H PRN PRN Reason: Pain (Mild 1-3)/fever Hydrocodone Bitart/Acetaminophen ([place] 325-5 Mg) 1 tab PO Q4H PRN PRN Reason: Pain (moderate 4-6) Last Admin: 08/01/18 20:19 Dose: 1 tab Albuterol/Ipratropium (Duoneb 3.0-0.5 Mg/3 Ml) 3 ml NEB Q4H PRN PRN Reason: Shortness Of Breath/wheezing Alogliptin Benzoate (Alogliptin) 12.5 mg PO BID [facility] Last Admin: 08/03/18 09:00 Dose: 12.5 mg Amiodarone HCl (Cordarone) 300 mg PO BID [facility] Last Admin: 08/03/18 09:00 Dose: 300 mg Apixaban (Eliquis) 5 mg PO BID [facility] Last Admin: 08/03/18 09:01 Dose: 5 mg Bisacodyl (Dulcolax) 5 mg PO DAILY PRN PRN Reason: Constipation Bumetanide (Bumex) 0.5 mg IVPUSH DAILY [facility] Last Admin: 08/03/18 08:15 Dose: 0.5 mg Docusate Sodium (Colace) 100 mg PO BID PRN PRN Reason: Constipation Famotidine (Pepcid) 20 mg PO DAILY [facility] Last Admin: 08/03/18 09:00 Dose: 20 mg Hydralazine HCl (Apresoline) 20 mg IVPUSH Q4H PRN PRN Reason: Hypertension Hydrochlorothiazide (Hydrochlorothiazide) 12.5 mg PO DAILY [facility] Last Admin: 08/03/18 09:00 Dose: 12.5 mg Hydromorphone HCl (Dilaudid) 0.25 mg IVPUSH Q2H PRN PRN Reason: Pain (severe 7-10) Amiodarone HCl/Dextrose (Nexterone In Dextrose 360 Mg/200 Ml) 360 mg in 200 mls @ 33.333 mls/hr IV ASDIRECTED [facility]; Protocol Last Infusion: 07/31/18 21:07 Dose: 0 mls/hr Promethazine HCl 6.25 mg/ (Sodium Chloride) 50.25 mls @ 100 mls/hr IV Q6H PRN PRN Reason: Nausea/Vomiting Insulin Human Lispro (Humalog) 0 unit SUBCUT TIDAC [facility]; Protocol Last Admin: 08/03/18 11:44 Dose: 3 units Insulin Human Lispro (Humalog) 0 unit SUBCUT BEDTIME [facility]; Protocol Last Admin: 08/02/18 20:37 Dose: 3 units Lisinopril (Prinivil) 2.5 mg PO DAILY [facility] Lorazepam (Ativan) 0.25 mg IV Q6H PRN PRN Reason: Anxiety Magnesium Sulfate (Pharmacy To Dose - Magnesium Replacement) 0 dose .XX ASDIRECTED PRN PRN Reason: RX TO WATCH MAG Metformin HCl (Glucophage) 1,000 mg PO BID [facility] Last Admin: 08/03/18 09:01 Dose: 1,000 mg Metoprolol Tartrate (Lopressor) 5 mg IVPUSH Q4H PRN PRN Reason: Tachycardia Metoprolol Tartrate (Lopressor) 12.5 mg PO Q12H [facility] Last Admin: 08/03/18 09:00 Dose: 12.5 mg Ondansetron HCl (Zofran) 4 mg IV Q6H PRN PRN Reason: Nausea/Vomiting Last Admin: 08/01/18 14:03 Dose: 4 mg Potassium Chloride (Pharmacy To Dose - Potassium Replacement) 0 dose .XX ASDIRECTED PRN PRN Reason: RX TO WATCH K Senna/Docusate Sodium (Senna Plus) 1 tab PO BID PRN PRN Reason: Constipation Timolol Maleate (Timoptic 0.25% Ophth Soln) 0 ml EYEBOTH BID [facility] Last Admin: 08/03/18 08:18 Dose: 1 drop Discontinued Medications Amiodarone HCl (Cordarone) 300 mg PO ONETIME ONE Stop: 07/31/18 21:01 Last Admin: 07/31/18 20:53 Dose: 300 mg Bumetanide (Bumex) 0.5 mg IVPUSH ONETIME ONE Stop: 08/01/18 14:01 Bumetanide (Bumex) 0.5 mg IVPUSH BIDDIURETIC [facility] Last Admin: 08/02/18 05:00 Dose: 0.5 mg Carvedilol (Coreg) 12.5 mg PO BIDMEALS [facility] Last Admin: 08/01/18 08:05 Dose: 12.5 mg Furosemide (Lasix) 40 mg IVPUSH NOW ONE Stop: 07/31/18 19:02 Last Admin: 07/31/18 19:13 Dose: 40 mg Furosemide (Lasix) 20 mg PO DAILY [facility] Hydrochlorothiazide (Hydrochlorothiazide) 12.5 mg PO BIDDIURETIC [facility] Last Admin: 08/02/18 05:00 Dose: 12.5 mg Hydromorphone HCl (Dilaudid) 0.25 mg IVPUSH ONETIME ONE Stop: 07/31/18 19:03 Last Admin: 07/31/18 19:11 Dose: 0.25 mg Amiodarone HCl/Dextrose (Nexterone In Dextrose 150 Mg/100 Ml) 100 mls @ 600 mls /hr IV .BOLUS ONE; Protocol Stop: 07/31/18 17:27 Last Admin: 07/31/18 17:25 Dose: 600 mls/hr Magnesium Sulfate/Dextrose 1 (gm/ Premix) 100 mls @ 100 mls/hr IV ONETIME ONE Stop: 07/31/18 22:40 Last Admin: 07/31/18 22:17 Dose: 100 mls/hr Insulin Human Lispro (Humalog) 0 unit SUBCUT QIDACANDBED [facility]; Protocol Last Admin: 08/02/18 16:51 Dose: Not Given Lisinopril (Prinivil) 10 mg PO DAILY [facility] Last Admin: 08/02/18 10:16 Dose: Not Given Lisinopril (Prinivil) 2.5 mg PO DAILY [facility] Magnesium Oxide (Magnesium Oxide) 400 mg PO ONETIME ONE Stop: 07/31/18 20:01 Last Admin: 07/31/18 20:54 Dose: 400 mg Magnesium Oxide (Magnesium Oxide) 800 mg PO ONETIME ONE Stop: 08/02/18 12:01 Last Admin: 08/02/18 12:21 Dose: 800 mg Metoprolol Tartrate (Lopressor) 25 mg PO ONETIME ONE Stop: 08/01/18 09:36 Last Admin: 08/01/18 09:43 Dose: 25 mg Metoprolol Tartrate (Lopressor) 25 mg PO Q12H [facility] - Exam General: Alert, Oriented, Cooperative, Other (Obese) HEENT: Pupils Equal, Pupils Reactive, EOMI, Mucous Membr. Moist/[place] Neck: Supple Lungs: Clear to Auscultation, Normal Respiratory Effort Cardiovascular: Irregular Rhythm GI/Abdominal Exam: Normal Bowel Sounds, Soft, Non-Tender, No Organomegaly, No Distention, No Abnormal Bruit, Other (Obese) (Male) Exam: Deferred Back Exam: Normal Inspection, Decreased Range of Motion Extremities: Normal Inspection, Normal Range of Motion, Non-Tender, No Pedal Edema, Normal Capillary Refill Peripheral Pulses: 2+: Dorsalis Pedis (L), Dorsalis Pedis (R) Skin: Warm, Dry, Intact Neurological: No New Focal Deficit, Normal Gait Psy/Mental Status: Alert, Normal Affect, Normal Mood - Problem List Review Problem List Initiated/Reviewed/Updated: Yes - My Orders Last 24 Hours: My Active Orders 08/02/18 21:00 Insulin Lispro [HumaLOG] 0 unit SUBCUT BEDTIME 08/03/18 05:35 PRO B-TYPE NATRIUR PEPT,BNPPRO [CHEM] AM 08/03/18 07:00 Echo Comp wo Cont [US] Routine Insulin Lispro [HumaLOG] 0 unit SUBCUT TIDAC 08/03/18 09:00 Bumetanide [Bumex] 0.5 mg IVPUSH DAILY hydroCHLOROthiazide 12.5 mg PO DAILY 08/03/18 10:13 Consult to Watch Case Polisher [Consult to Diabetic Nurse Specialist] [CONS] Routine Consult to [facility] [employer] Attendant [CONS] Routine 08/03/18 12:00 Admission Status [Patient Status] [ADT] Routine 08/04/18 05:11 BMP [BASIC METABOLIC PANEL,BMP] [CHEM] AM MG [MAGNESIUM] [CHEM] AM PRO B-TYPE NATRIUR PEPT,BNPPRO [CHEM] AM 08/06/18 09:00 Lisinopril [Prinivil] 2.5 mg PO DAILY - Plan Plan:: Assessment/Plan: CHF, Continues to Improve * Acute (no one has ever told him before) but this is likely chronic * Risk Factors: Afib, HTN, stopped his Lasix and Carvedilol--> Restart Carvedilol; will now switch to Metoprolol for better rate control * BNP 5730-->5973-->4693-->3929 * Suspect he has underlying cardiomyopathy; his heart is enlarged on chest x-ray * ECHO ordered * Lasix given in ED x1 * Changed Bumex to Lasix and continue HCTZ to daily DM2 on * A1C 8.10 * BS now well controlled * Continue Metformin/Alogpitin and High dose ISS * QID Glucose checks, ISS change to high dose * Dietary and Diabetic consult * Provided reading materials for GLP1 and SLG2 Inhibitors Resolved: S/p AFib w/ RVR * Acute on Chronic * Also in and out; he was sinus rhythm last night and it looks like he has gone back to atrial fibrillation with heart rate as low at 104 and as high as 125s on monitor * Risk factor: Stopped taking Carvedilol--> Restart Carvedilol: consider switching to Metoprolol 25 mg po BID if intolerant may do half dose by trial * Pt denies dizziness, CP, SOB * Persistent tachycardia x 2+ weeks: * During radiation treatment in [place] over the past 4 weeks, had EKG w/ HR 140s- 150s but was asymptomatic so no treatment was given * Pt was at clinic today and identified to be in Aflutter/Afib with wide- complex tachycardia at 145bpm; was sent to ED * He is on Digoxin * EKG in ED suggests wide-complex tachycardia d/t L anterior fascicular block and likely RBBB; mildly prolonged QT interval * CXR per ED read: Mod cardiomegaly w/ mild diffuse vascular congestion; pending formal read * Amiodarone started in ED--> drip was stopped last night and switched to oral dosing * Thyroid panel are wnl * F/u with cardiology after discharge Hypomagnesemia * Mg 1.7--> 1.9 * Replete and monitor Chronic: Afib on Eliquis, on Metoprolol and Amiodarone, HR controlled HTN on Lisinopril CHF previously on Carvedilol, Lasix Appendectomy Cholecystectomy Cataract, Glaucoma Prostate CA --> radiation treatment in [place], [place] (4 weeks completed, 3 weeks to go) Class II Obesity SG on CPAP Plan: He remains clinically and hemodynamically stable. He is tolerating both Amiodarone and low dose BB w/ controlled HR Routine AM Labs Consistent Carb/Heart Healthy Diet DVT/GI prophylaxis: Eliquis and H2B CM/SW for d/c planning Encourage to ambulate as tolerated Code Status: Full Code; PCP: Erica Levy PA-C at [facility] LOS > 96hrs pending 2D echo report
[2018-08-03] MEDS ORDERED: Furosemide 40 MG/4 ML VIAL IVPUSH ONE ×2 (18:00)
[2018-08-04] MEDS ORDERED: Furosemide 40 MG/4 ML VIAL IVPUSH ONE (06:00)
[2018-08-04] MEDS: Insulin Lispro 100 UNIT/ML 10 ML VIAL SUBCUT SCH ×2 (07:29→11:32)
[2018-08-04] MEDS: Apixaban 5 MG Tab PO SCH (08:25)
[2018-08-04] MEDS: Famotidine 20 MG Tab PO SCH (08:25)
[2018-08-04] MEDS: metFORMIN 500 MG Tab PO SCH (08:25)
[2018-08-04] MEDS: Timolol Maleate 0.25% Ophth Soln 5 ML Bottle EYEBOTH SCH (08:25)
[2018-08-04] MEDS: Hydrochlorothiazide 12.5 MG Cap PO SCH (08:26)
[2018-08-04] MEDS: Amiodarone 200 MG Tab PO SCH (08:26)
[2018-08-04] MEDS: Alogliptin 12.5 MG TABLET PO SCH (08:26)
[2018-08-04] MEDS: Metoprolol Tartrate 25 MG Tab PO SCH (08:26)
[2018-08-04] MEDS ORDERED: Magnesium Oxide 400 MG Tab PO ONE (09:00)
--- NOTE | 2018-08-04 14:03 | PCM.DCSUM1 ---
Discharge Summary - Hospital Course Free Text/Narrative:: Patient was primarily admitted for shortness of breath and was diagnosed with wide complex tachycardia which later revealed an underlying rhythm of atrial fibrillation after initial treatment in the emergency department. He was treated first with Amiodarone drip but this agent failed to fully control his heart rate. After adding beta blocked to his rhythm control agent, he responded well to the treatment. However 25 mg po BID of Metoprolol proved to be a little too much so we cut down to 12.5 mg and from there, we achieved a more controlled rate that runs in the 70-80s. His hospital course was moderately complicated by acute congestive heart failure likely induced by his recent irregular abnormal heart rate. However with heart failure protocol, we were able to diurese him well and he lost a little over 7lbs since admission. His glucose overall also improved after we tweaked his diabetic regimen. Once his 2D echo report came back, he was immediately discharge to home with a new routine home medications that includes heart failure regimen. Patient and his were educated about salt and fluid restrictions. He was also instructed what to do de dios sudden shortness of breath or increased edema. He was advised to comply with discharge instructions and mostly importantly for follow up with PCP after discharge. The patient and his at [facility] expressed understanding and in agreement with the plans as discussed above. All questions were answered. Of note, his PCP , Ms. Phelps was called and updated about discharge care plan and the importance of following up with cardiology after discharge. HPI Initial Comments: This is an 83 yo male with past medical h/o Afib on Eliquis, HTN, CHF, DM2, Appendectomy, Cholecystectomy, Cataract, Glaucoma, Prostate CA who was sent to the ED from his PCP in [place] for Afib w/ RVR. Pt was at clinic today and was identified to be in atrial flutter/Afib with wide-complex tachycardia at 145bpm. While getting radiation treatment for Prostate CA in [place] over the past 4 weeks, he had EKG w/ HR 140s-150s but was asymptomatic so no treatment was given. He is on Digoxin, but stopped his Carvedilol and Lasix (he is unsure as to why these were stopped). Pt c/o pinching sensation in his right supraclavicular fossa area. He denies any dizziness/lightheadedness, CP, SOB, N/ V/D, or other complaints. His initial workup in the ED shows a CBC remarkable for Hgb 13.5, RDW 47.8, Plt 143, Neut 76%, Lymph 17%. Coagulation studies show PT 15.2, INR 1.4, APTT 34. His chemistry is remarkable for AGap 15.3, BUN 23, GFR 58, Glu 150, Mg 1.5, Bili 1.4, Alk Phos 43, BNP 5730, Albumin 3.2. Digoxin <0.2. EKG per ED read suggests wide-complex tachycardia d/t L anterior fascicular block and likely RBBB, mildly prolonged QT interval. UA not impressive for UTI. CXR per ED read shows mod cardiomegaly w/ mild diffuse vascular congestion; pending formal read. He is subsequently admitted to the ICU. He is a Full Code. PCP is Erica Levy PA-C at [facility]. Diagnosis: Stroke: No - Discharge Data Discharge Date: 08/04/18 Discharge Disposition: Home, Self-Care 01 Condition: Good - Discharge Diagnosis/Problem(s) (1) Congestive heart failure SNOMED Code(s): 60668614 ICD Code: I50.9 - HEART FAILURE, UNSPECIFIED Status: Acute Priority: High Qualifiers: Heart failure type: systolic Heart failure chronicity: acute Qualified Code(s): I50.21 - Acute systolic (congestive) heart failure (2) DM2 (diabetes mellitus, type 2) SNOMED Code(s): 37019891 ICD Code: E11.9 - TYPE 2 DIABETES MELLITUS WITHOUT COMPLICATIONS Status: Chronic Qualifiers: Diabetes mellitus termite control representative insulin use: without assisted use Diabetes mellitus complication status: without complication Qualified Code(s): E11.9 - Type 2 diabetes mellitus without complications (3) Atrial fibrillation with RVR SNOMED Code(s): 689493726896475 ICD Code: I48.91 - UNSPECIFIED ATRIAL FIBRILLATION Status: Resolved (4) Hypermagnesemia SNOMED Code(s): 24110893 ICD Code: E83.41 - HYPERMAGNESEMIA Status: Resolved (5) Obesity (BMI 30-39.9) SNOMED Code(s): 499111899, 911033421 ICD Code: E66.9 - OBESITY, UNSPECIFIED Status: Chronic (6) Wide-complex tachycardia SNOMED Code(s): 329595206 ICD Code: I47.2 - VENTRICULAR TACHYCARDIA Status: Resolved - Patient Summary/Data Operative Procedure(s) Performed: None Complications: None Consults: Consultations 07/31/18 19:25 Consult to Case Management/Province Archivist [CONS] Routine OT Evaluation and Treatment [CONS] Routine PT Evaluation and Treatment [CONS] Routine 08/03/18 10:13 Consult to Feed Weigher [Consult to Diabetic Nurse Specialist] [CONS] Routine Consult to Spring Former [CONS] Routine Labs Pending at D/C: None Recommended Follow-up Testing/Procedures: Cardiology eval Planned Operative Procedure(s) after DC: None - Patient Instructions Diet: Heart Healthy Diet, Low Sodium, Fluid Restriction, Diabetic Diet, Weight Loss Diet Fluid Restriction: 2000 mL Activity: As Tolerated Driving: May Drive Today Showering/Bathing: May Shower Notify Provider of: Fever, Increased Pain, Swelling and Redness, Nausea and/or Vomiting Other/Special Instructions: - Please take all new medications as directed. - Resume all home medications and routine home activities as tolerated. - Check vitals and follow parameters before you take blood pressure pills. Show log on follow up appointment with family doctor. - Recommend daily salt and fluid restrictions as well as diabetic and electrocardiograph technician's recommendations. - Recommend you see cardiology for further eval after discharge. - Call or follow up with your PCP for any questions or concerns after discharge. - Follow up with your PCP in 1 week with repeat labs. - Come back or seek immediate care should your symptoms persist or get worse - Discharge Plan *PRESCRIPTION DRUG MONITORING PROGRAM REVIEWED*: Not Applicable *COPY OF PRESCRIPTION DRUG MONITORING REPORT IN PATIENT HILARIO: Not Applicable Prescriptions/Med Rec: Amiodarone [Cordarone] 300 mg PO BID #60 tablet Furosemide [Lasix] 20 mg PO ASDIRECTED #90 tab metOLazone [Metolazone] 5 mg PO ASDIRECTED #30 tablet Metoprolol Tartrate [Lopressor] 12.5 mg PO Q12H #60 tablet Home Medications: Home Meds Apixaban [Eliquis] 5 mg PO BID 03/28/17 [History] sitaGLIPtin Phos/Metformin HCl [Janumet 50-1,000 MG] 50 - 1,000 mg PO BID [History] Timolol Maleate 1 drop EYEBOTH BID 07/31/18 [History] Amiodarone [Cordarone] 300 mg PO BID #60 tablet 08/04/18 [Rx] Furosemide [Lasix] 20 mg PO ASDIRECTED #90 tab 08/04/18 [Rx] Lisinopril [Zestril] 5 mg PO DAILY #30 08/04/18 [Rx] Metoprolol Tartrate [Lopressor] 12.5 mg PO Q12H #60 tablet 08/04/18 [Rx] metOLazone [Metolazone] 5 mg PO ASDIRECTED #30 tablet 08/04/18 [Rx] Patient Handouts: Hypomagnesemia, Type 2 Diabetes Mellitus, Self Care, Adult, [id number], Heart Failure, [id number], Atrial Fibrillation, [id number], Obesity, Adult, [id number] Referrals: Francisco Johnson PA-C [Primary Care Provider] - - Discharge Summary/Plan Comment DC Time >30 min.: No Discharge Summary/Plan Comment: Discharge to Home - General Info Date of Service: 08/04/18 Admission Dx/Problem (Free Text: Afib with RVR Subjective Update: Follow Up Functional Status: Reports: Pain Controlled, Tolerating Diet, Ambulating, Urinating. Denies: New Symptoms - Review of Systems General: Denies: Fever, Weakness, Fatigue, Malaise, Chills HEENT: Reports: No Symptoms Pulmonary: Denies: Shortness of Breath, Pleuritic Chest Pain, Cough, Wheezing Cardiovascular: Denies: Palpitations Gastrointestinal: Denies: Abdominal Pain, Nausea, Vomiting Genitourinary: Reports: Frequency Musculoskeletal: Reports: No Symptoms Skin: Denies: Mottled, Pallor, Bruising Neurological: Denies: Confusion, Difficulty Walking, Weakness, Gait Disturbance Psychiatric: Denies: Depression, Anxiety, Agitation Systems Review Comment: No overnight or acute issues. He rested well and felt pretty good this morning. He has no complaints. His 2D echo report came back with an EF of 30-35% and Moderate TVR. - Patient Data Vitals - Most Recent: Last Vital Signs Temp 36.2 C 08/04/18 12:21 Pulse 70 08/04/18 12:21 Resp 14 08/04/18 12:21 BP 125/91 H 08/04/18 12:21 Pulse Ox 94 L 08/04/18 12:21 Weight - Most Recent: 98.747 kg I&O - Last 24 hours: Intake & Output 08/03/18 08/04/18 08/04/18 22:59 06:59 14:59 Intake Total 880 400 300 Output Total 200 200 Balance 680 200 300 Lab Results - Last 24 hrs: Laboratory Results - last 24 hr 08/03/18 08/03/18 08/04/18 Range/Units 17:34 21:31 06:22 Sodium (136-145) mEq/L Potassium (3.5-5.1) mEq/L Chloride (98-107) mEq/L Carbon Dioxide (21-32) mEq/L Anion Gap (5-15) BUN (7-18) mg/dL Creatinine (0.7-1.3) mg/dL Est Cr Clr Drug Dosing mL/min Estimated GFR (MDRD) (>60) mL/min BUN/Creatinine Ratio (14-18) Glucose (83-115) mg/dL POC Glucose 111 H 133 H 145 H (83-110) mg/dL Calcium (8.5-10.1) mg/dL Magnesium (1.8-2.4) mg/dl NT-Pro-B Natriuret Pep (0-450) pg/mL 08/04/18 08/04/18 08/04/18 Range/Units 06:57 06:57 11:06 Sodium 141 (136-145) mEq/L Potassium 3.9 (3.5-5.1) mEq/L Chloride 102 (98-107) mEq/L Carbon Dioxide 30 (21-32) mEq/L Anion Gap 12.9 (5-15) BUN 31 H (7-18) mg/dL Creatinine 1.5 H (0.7-1.3) mg/dL Est Cr Clr Drug Dosing 40.44 mL/min Estimated GFR (MDRD) 45 (>60) mL/min BUN/Creatinine Ratio 20.7 H (14-18) Glucose 136 H (83-115) mg/dL POC Glucose 145 H (83-110) mg/dL Calcium 9.2 (8.5-10.1) mg/dL Magnesium 1.7 L (1.8-2.4) mg/dl NT-Pro-B Natriuret Pep 3900 H (0-450) pg/mL Med Orders - Current: Current Medications Acetaminophen (Tylenol) 650 mg PO Q4H PRN PRN Reason: Pain (Mild 1-3)/fever Hydrocodone Bitart/Acetaminophen ([place] 325-5 Mg) 1 tab PO Q4H PRN PRN Reason: Pain (moderate 4-6) Last Admin: 08/01/18 20:19 Dose: 1 tab Albuterol/Ipratropium (Duoneb 3.0-0.5 Mg/3 Ml) 3 ml NEB Q4H PRN PRN Reason: Shortness Of Breath/wheezing Alogliptin Benzoate (Alogliptin) 12.5 mg PO BID [facility] Last Admin: 08/04/18 08:26 Dose: 12.5 mg Amiodarone HCl (Cordarone) 300 mg PO BID [facility] Last Admin: 08/04/18 08:26 Dose: 300 mg Apixaban (Eliquis) 5 mg PO BID [facility] Last Admin: 08/04/18 08:25 Dose: 5 mg Bisacodyl (Dulcolax) 5 mg PO DAILY PRN PRN Reason: Constipation Docusate Sodium (Colace) 100 mg PO BID PRN PRN Reason: Constipation Famotidine (Pepcid) 20 mg PO DAILY [facility] Last Admin: 08/04/18 08:25 Dose: 20 mg Hydralazine HCl (Apresoline) 20 mg IVPUSH Q4H PRN PRN Reason: Hypertension Hydrochlorothiazide (Hydrochlorothiazide) 12.5 mg PO DAILY [facility] Last Admin: 08/04/18 08:26 Dose: 12.5 mg Hydromorphone HCl (Dilaudid) 0.25 mg IVPUSH Q2H PRN PRN Reason: Pain (severe 7-10) Promethazine HCl 6.25 mg/ (Sodium Chloride) 50.25 mls @ 100 mls/hr IV Q6H PRN PRN Reason: Nausea/Vomiting Insulin Human Lispro (Humalog) 0 unit SUBCUT TIDAC [facility]; Protocol Last Admin: 08/04/18 11:32 Dose: Not Given Insulin Human Lispro (Humalog) 0 unit SUBCUT BEDTIME [facility]; Protocol Last Admin: 08/03/18 21:33 Dose: Not Given Lisinopril (Prinivil) 2.5 mg PO DAILY [facility] Lorazepam (Ativan) 0.25 mg IV Q6H PRN PRN Reason: Anxiety Magnesium Sulfate (Pharmacy To Dose - Magnesium Replacement) 0 dose .XX ASDIRECTED PRN PRN Reason: RX TO WATCH MAG Metformin HCl (Glucophage) 1,000 mg PO BID [facility] Last Admin: 08/04/18 08:25 Dose: 1,000 mg Metoprolol Tartrate (Lopressor) 5 mg IVPUSH Q4H PRN PRN Reason: Tachycardia Metoprolol Tartrate (Lopressor) 12.5 mg PO Q12H [facility] Last Admin: 08/04/18 08:26 Dose: 12.5 mg Ondansetron HCl (Zofran) 4 mg IV Q6H PRN PRN Reason: Nausea/Vomiting Last Admin: 08/01/18 14:03 Dose: 4 mg Potassium Chloride (Pharmacy To Dose - Potassium Replacement) 0 dose .XX ASDIRECTED PRN PRN Reason: RX TO WATCH K Senna/Docusate Sodium (Senna Plus) 1 tab PO BID PRN PRN Reason: Constipation Timolol Maleate (Timoptic 0.25% Ophth Soln) 0 ml EYEBOTH BID [facility] Last Admin: 08/04/18 08:25 Dose: 1 drop Discontinued Medications Amiodarone HCl (Cordarone) 300 mg PO ONETIME ONE Stop: 07/31/18 21:01 Last Admin: 07/31/18 20:53 Dose: 300 mg Bumetanide (Bumex) 0.5 mg IVPUSH ONETIME ONE Stop: 08/01/18 14:01 Bumetanide (Bumex) 0.5 mg IVPUSH BIDDIURETIC [facility] Last Admin: 08/02/18 05:00 Dose: 0.5 mg Bumetanide (Bumex) 0.5 mg IVPUSH DAILY [facility] Last Admin: 08/03/18 08:15 Dose: 0.5 mg Carvedilol (Coreg) 12.5 mg PO BIDMEALS [facility] Last Admin: 08/01/18 08:05 Dose: 12.5 mg Furosemide (Lasix) 40 mg IVPUSH NOW ONE Stop: 07/31/18 19:02 Last Admin: 07/31/18 19:13 Dose: 40 mg Furosemide (Lasix) 20 mg PO DAILY [facility] Furosemide (Lasix) 10 mg IVPUSH NOW ONE Stop: 08/03/18 18:01 Furosemide (Lasix) 5 mg IVPUSH NOW ONE Stop: 08/03/18 18:01 Furosemide (Lasix) 10 mg IVPUSH ONETIME ONE Stop: 08/04/18 06:01 Last Admin: 08/04/18 05:58 Dose: 10 mg Hydrochlorothiazide (Hydrochlorothiazide) 12.5 mg PO BIDDIURETIC [facility] Last Admin: 08/02/18 05:00 Dose: 12.5 mg Hydromorphone HCl (Dilaudid) 0.25 mg IVPUSH ONETIME ONE Stop: 07/31/18 19:03 Last Admin: 07/31/18 19:11 Dose: 0.25 mg Amiodarone HCl/Dextrose (Nexterone In Dextrose 150 Mg/100 Ml) 100 mls @ 600 mls /hr IV .BOLUS ONE; Protocol Stop: 07/31/18 17:27 Last Admin: 07/31/18 17:25 Dose: 600 mls/hr Amiodarone HCl/Dextrose (Nexterone In Dextrose 360 Mg/200 Ml) 360 mg in 200 mls @ 33.333 mls/hr IV ASDIRECTED [facility]; Protocol Last Infusion: 07/31/18 21:07 Dose: 0 mls/hr Magnesium Sulfate/Dextrose 1 (gm/ Premix) 100 mls @ 100 mls/hr IV ONETIME ONE Stop: 07/31/18 22:40 Last Admin: 07/31/18 22:17 Dose: 100 mls/hr Insulin Human Lispro (Humalog) 0 unit SUBCUT QIDACANDBED [facility]; Protocol Last Admin: 08/02/18 16:51 Dose: Not Given Lisinopril (Prinivil) 10 mg PO DAILY [facility] Last Admin: 08/02/18 10:16 Dose: Not Given Lisinopril (Prinivil) 2.5 mg PO DAILY [facility] Magnesium Oxide (Magnesium Oxide) 400 mg PO ONETIME ONE Stop: 07/31/18 20:01 Last Admin: 07/31/18 20:54 Dose: 400 mg Magnesium Oxide (Magnesium Oxide) 800 mg PO ONETIME ONE Stop: 08/02/18 12:01 Last Admin: 08/02/18 12:21 Dose: 800 mg Magnesium Oxide (Magnesium Oxide) 800 mg PO ONETIME ONE Stop: 08/04/18 09:01 Last Admin: 08/04/18 08:25 Dose: 800 mg Metoprolol Tartrate (Lopressor) 25 mg PO ONETIME ONE Stop: 08/01/18 09:36 Last Admin: 08/01/18 09:43 Dose: 25 mg Metoprolol Tartrate (Lopressor) 25 mg PO Q12H TOÑA - Exam General: Reports: Alert, Oriented, Cooperative, No Acute Distress HEENT: Reports: Pupils Equal, Pupils Reactive, EOMI, Mucous Membr. Moist/Margaret Neck: Reports: Supple Lungs: Reports: Normal Respiratory Effort, Decreased Breath Sounds Cardiovascular: Reports: Irregular Rhythm GI/Abdominal Exam: Normal Bowel Sounds, Soft, Non-Tender, No Organomegaly, No Distention, No Abnormal Bruit (Male) Exam: Deferred Rectal (Males) Exam: Deferred Back Exam: Reports: Normal Inspection, Decreased Range of Motion Extremities: Normal Inspection, Normal Range of Motion, Non-Tender, No Pedal Edema, Normal Capillary Refill Skin: Reports: Warm, Intact Neurological: Reports: No New Focal Deficit Psy/Mental Status: Reports: Alert, Normal Affect, Normal Mood
[2018-08-06] MEDS ORDERED: Lisinopril 2.5 MG Tab PO SCH (09:00)
== END 2018-08-04 14:10 | disposition home or self-care (01) | DRG 308 ==
LOC: JD.ED 16:53 → JD.ICU 19:06 → UNDOADMIN 19:06 → JD.ICU 20:17 → JD.MS 08-03 19:00
PROVIDERS: ADMIT Internal Medicine; ATTEND Internal Medicine
DX: I48.2 Chronic atrial fibrillation (principal); I50.23 Acute on chronic systolic (congestive) heart failure; I48.92 Unspecified atrial flutter; I11.0 Hypertensive heart disease with heart failure; C61 Malignant neoplasm of prostate; H40.9 Unspecified glaucoma; E11.9 Type 2 diabetes mellitus without complications; E66.9 Obesity, unspecified; I47.2 Ventricular tachycardia; E83.42 Hypomagnesemia; I42.9 Cardiomyopathy, unspecified; R60.0 Localized edema; R35.0 Frequency of micturition; R00.0 Tachycardia, unspecified; M54.9 Dorsalgia, unspecified; R42 Dizziness and giddiness; I45.81 Long QT syndrome; G47.33 Obstructive sleep apnea (adult) (pediatric); Z68.30 Body mass index [BMI] 30.0-30.9, adult; Z79.899 Other long term (current) drug therapy; Z79.84 Long term (current) use of oral hypoglycemic drugs; Z79.01 Long term (current) use of anticoagulants; Z90.49 Acquired absence of other specified parts of digestive tract
CPT/HCPCS: 36415; 71045; 80053; 80162; 81001; 82553; 83735; 83880; 84484; 85007; 85027; 85610; 85730; 86140; 93005 ×2; 96365; 96366; 96375; 99285; J0282 ×2; J1170; J1940; 80048; 82962; 83036; 84439; 84443; 85025; 93010; 93306; 94660; 94760; 97116-GP; 97162-GP; 97165-GO; A9270-GY; J1815-GY; J2405; J3475; J3490